=== PATIENT | male | born 1960 | race African-American/Black ===

== ENCOUNTER 2018-12-13 15:25 | Inpatient (IN) | payer BC ==
[2018-12-13] MEDS ORDERED: Mag-Al 1200 mg/1200 mg/30 ML UDCUP ONE (16:19)
[2018-12-13] MEDS ORDERED: Morphine 4 MG/ML VIAL ONE ×2 (16:19→18:41)
[2018-12-13] MEDS ORDERED: Lidocaine Viscous Sol 2% 15 ml UD Cup ONE (16:19)
[2018-12-13] MEDS ORDERED: Ondansetron PF 4 MG/2 ML Vial ONE (16:19)
[2018-12-13 16:31] LABS: #Basophils 0.1 thou/uL (0.0-0.2); #Eosinphils 0.1 thou/uL (0.0-0.7); #Lymphocytes 1.4 thou/uL (1.20-3.40); #Monocytes 0.7 thou/uL (0.11-0.59); %Basophils 0.6 % (0.0-1.0); %Eosinophils 1.3 % (0.0-10.0); %Lymphocytes 15.4 % (21.0-51.0); %Monocytes 7.4 % (0.0-10.0); %Neutrophils 75.2 % (42.0-75.0); Hemoglobin 12.7 g/dL (14.0-18.0); Mean Corpuscular HGB CONC 32.7 g/dL (32.0-36.0); Mean Corpuscular Hemoglobin 31.6 pg (27.0-31.0); Mean Corpuscular Volume 96.4 fL (78.0-98.0); Mean Platelet Volume 10.1 fL (7.4-10.4); Platelet Count 125 thou/uL (130-400); RBC Distribution Width 12.2 % (11.5-14.5); Red Blood Cell (RBC) Count 4.02 mill/uL (4.70-6.10); White Blood Cell (WBC) Count 9.3 thou/uL (4.8-10.8)
--- NOTE | 2018-12-13 16:44 | RAD ---
AP CHEST: History: Chest pain. Date: 12-13-18 Comparison: 02-06-15 FINDINGS: AP chest demonstrates cardiomegaly. Mild pulmonary vascular congestion seen. No evidence of effusions or pneumonia seen. IMPRESSION: Mild pulmonary vascular congestion and cardiomegaly. Otherwise, unremarkable AP view chest. POS: [facility]
[2018-12-13 16:49] LABS: ALT (SGPT) 11 U/L (8-55); AST (SGOT) 15 U/L (5-34); Albumin 3.6 g/dL (3.5-5.0); Alkaline Phosphatase 89 U/L (40-150); Anion Gap 14 mmol/L (10-20); BUN (Urea Nitrogen) 36 mg/dL (8.4-25.7); Bilirubin, Total 0.6 mg/dL (0.2-1.2); CK (CPK) 149 U/L (30-200); Calc. Creatinine Clearance 0 mL/min (70-130); Calcium 9.5 mg/dL (7.8-10.44); Carbon Dioxide 30 mmol/L (22-29); Chloride 93 mmol/L (98-107); Estimated GFR-MDRD 22; Globulin 3.8 g/dL (2.4-3.5); Lipase 332 U/L (8-78); Potassium 4.2 mmol/L (3.5-5.1); Protein, Total 7.4 g/dL (6.0-8.3); Sodium 133 mmol/L (136-145)
[2018-12-13 16:52] LABS: Glucose 562 mg/dL (70-105)
[2018-12-13 17:00] LABS: Bilirubin Negative (Negative); Blood, Urine Small (Negative); Clarity CLEAR (Clear); Glucose, Urine (Dipstick) >=1000 mg/dL (Negative); Leukocyte Negative (Negative); Nitrite Negative (Negative); Protein, Urine (Dipstick) 300 mg/dL (Neg-Trace); Specific Gravity, Urine 1.018 (1.002-1.036); Urobilinogen 0.2 mg/dL (0.2-1.0); pH, Urine 6.5 (5.0-9.0)
[2018-12-13 17:02] LABS: Bacteria/HPF None Seen HPF (None Seen); Hyaline Casts/LPF 0-3 HYALINE CAST LPF (0-3 Hyaline); RBC/HPF 0-3 HPF (0-3); Squamous Epithelial 0-3 HPF (0-3); WBC/HPF 0-3 HPF (0-3)
[2018-12-13 17:16] LABS: CKMB 1.8 ng/mL (0-6.6)
[2018-12-13] MEDS ORDERED: Benzonatate 100 MG CAP PO PRN (17:56)
[2018-12-13] MEDS ORDERED: Senokot S 8.6-50 MG TAB PO PRN ×2 (17:56)
[2018-12-13] MEDS ORDERED: Nitroglycerin 0.4 MG TAB (25 Tab Bottle) SL PRN (17:56)
[2018-12-13] MEDS ORDERED: Promethazine HCl 25 MG/ML VIAL IM PRN (17:56)
[2018-12-13] MEDS ORDERED: Bisacodyl 5 MG TAB PO PRN (17:56)
[2018-12-13] MEDS ORDERED: Acetaminophen 325 MG TAB PO PRN (17:56)
[2018-12-13] MEDS ORDERED: Diabetic Tussin 200 MG/10 ML UDCUP PO PRN (17:56)
[2018-12-13] MEDS ORDERED: Calcium Carbonate 500 MG ChewTAB PO PRN (17:56)
[2018-12-13] MEDS ORDERED: hydrALAZINE 20 MG/ML VIAL SLOW IVP PRN (17:56)
[2018-12-13] MEDS ORDERED: Dextrose 50% Abboject 50 ML SYRINGE SLOW IVP PRN (17:56)
[2018-12-13] MEDS ORDERED: Ondansetron PF 4 MG/2 ML Vial IVP PRN ×2 (17:56)
[2018-12-13] MEDS ORDERED: Dextrose 5% in Water 1,000 ML IV PRN (17:56)
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
[2018-12-13] MEDS ORDERED: Pantoprazole 40 MG VIAL ONE (18:41)
[2018-12-13] MEDS: Sodium Chloride 0.9% 1,000 ML IV SCH ×2 (18:58→21:51)
[2018-12-13] MEDS ORDERED: Polyethylene Glycol 3350 17 GM Packet PO SCH (19:00)
[2018-12-13 19:30] LABS: Magnesium 2.5 mg/dL (1.6-2.6); Phosphorus 3.3 mg/dL (2.3-4.7)
[2018-12-13 19:37] LABS: Troponin I 0.039 ng/mL (< 0.028)
--- NOTE | 2018-12-13 20:19 | HP ---
PRIMARY CARE PHYSICIAN: Dr. Iglesias. PRIMARY NEWS BROADCASTER: Dr. Triana. CHIEF COMPLAINT: Abdominal pain radiating to left shoulder and high blood sugars. HISTORY OF PRESENTING ILLNESS: Mr. Reyna is a very pleasant 58-year-old male with past medical history of chronic kidney disease as well as history of diabetes, dyslipidemia, chronic congestive heart failure likely diastolic, and hypertension as well as coronary artery disease, who presented to the emergency room with the above-mentioned complaint. History is mainly obtained by the patient himself and electronic medical records have been reviewed. Case has been discussed with admitting ER physician, Dr. Bravo. Mr. Reyna reports that he has been having this abdominal discomfort and pain for almost last 8 to 10 days. He describes it as an ongoing severe sharp pain. It increases in intensity after he eats. It is relieved somewhat when he lies flat with pain across to his abdomen. It radiates to his left shoulder. He has been also noticing that his appetite is down and he is severely constipated. He has been straining hard, but the last bowel movement he had was on when he noticed some blood in the stool due to straining. He also has been noticing that his blood sugars are running very high despite taking his insulin. Because of this, he felt that his pancreas is not doing well. He denies any other recent illnesses. He denies any nausea or vomiting. He denies any fever, chills, chest pain, shortness of breath. He denies excessive swelling or fluid retention. He states that he is compliant with his medications. The patient reports that he had similar episode of pancreatitis about 8 years ago. He does accept that he was drinking heavily at that time, but now he only drinks 2 to 3 times a week. He emphasizes that "I have quit beer and I only drink hard liquor these days to prevent pancreatitis." In the emergency room, his evaluation showed elevated lipase to 332. He also had hyperglycemia with a blood sugar of 562 and acute kidney insufficiency with creatinine of 3.54 with his baseline around 2.5. He had a CT scan done of his abdomen and pelvis, which was consistent with possible pancreatitis. Chest x-ray showed mild pulmonary vascular congestion with BNP of 418. He did not have any evidence to suggest diabetic ketoacidosis. He has received some IV fluids and pain medications in the ER and is now being admitted to medical floor for acute pancreatitis, most likely secondary to chronic alcohol use. Liver enzymes are unremarkable. There is no mention of gallbladder stones in the CT scan. No bowel obstruction in the CT scan. PAST MEDICAL HISTORY: 1. Coronary artery disease. 2. Chronic kidney disease, stage 3. 3. Diabetes mellitus type 2. 4. Dyslipidemia. 5. Gout. 6. Chronic congestive heart failure, likely diastolic. 7. Hypertension. 8. BPH. 9. Diabetic nephropathy. PAST SURGICAL HISTORY: Cardiac catheterization in 2007, which showed moderate decrease in EF as well as multivessel coronary artery disease. PSYCHIATRIC HISTORY: Negative. Reviewed with the patient. SOCIAL HISTORY: He smokes about 3/4 of a pack per day. Drinks alcohol at least 2 or 3 times a week. He does not drink beer, but drinks hard liquor instead. No illicit drug abuse. ALLERGIES: NO KNOWN MEDICATION ALLERGIES. CURRENT MEDICATIONS: As listed in the emergency room record and further needs to be corroborated. 1. Hydralazine. 2. Lisinopril. 3. Lantus subcu. 4. Glipizide. 5. Simvastatin. 6. Carvedilol with doses unknown. REVIEW OF SYSTEMS: 12-point review of system is done. It is negative except for those mentioned in the history and physical. CODE STATUS: Full code discussed with the patient. LABORATORY DATA: His CBC shows WBCs at 9.3 with 75% neutrophils, otherwise unremarkable. Platelet count is 125. Serum chemistry shows sodium 133, chloride 93, bicarb 30, BUN 36, creatinine 3.54, normal anion gap. Blood sugar 562. Mag, phos normal. BNP 418. Lipase 332. Troponin 0.047. Urinalysis showed glucosuria and proteinuria. Chest x-ray by my review shows bilateral small pleural effusion. Mild pulmonary vascular congestion without any evidence of infiltrates. CT scan of the abdomen and pelvis was concerning with mild pancreatitis, otherwise unremarkable. He does have an infrarenal abdominal aortic aneurysm which measures 4.2 x 3.9 cm. PHYSICAL EXAMINATION: VITAL SIGNS: Upon presentation, blood pressure 180/93, pulse of 80, respirations 18, saturating 96% on room air, temperature 98.4. GENERAL EXAMINATION: No acute distress. He does appear somewhat uncomfortable, but is awake, alert, and oriented x3. HEENT EXAMINATION: Mucous membrane is slightly dry. No oropharyngeal exudate or erythema. Head is normocephalic, atraumatic. Pupils are equal and reactive to light and accommodation. Extraocular movement intact. NECK: Supple without any lymphadenopathy, JVD, or bruit. CHEST: Clear to auscultation without any wheezing, rales or rhonchi. HEART: Rate and rhythm is regular without any murmurs, rubs, or gallops. ABDOMEN: Somewhat distended, obese, and tender to palpation diffusely without any guarding, rigidity, or rebound. Bowel sounds are heard easily. EXTREMITIES: Free of any cyanosis, clubbing, or edema. NEUROLOGICAL EXAMINATION: Nonfocal. SKIN: Free of any rashes or bruises. PSYCHIATRIC: Normal affect. IMPRESSION AND PLAN: 1. Acute pancreatitis. Most likely alcoholic pancreatitis. He has no evidence of gallstones. We will check a lipid panel in the morning. We will give him gentle IV fluids with n.p.o. status. Pain medication, nausea medication, supportive care will be continued. We will monitor electrolytes closely. He is at high risk for fluid overload, so IV fluids will be used judiciously with close monitoring of his intake and output status. He is otherwise hemodynamically stable. 2. Hypertensive urgency. We will restart his home medications when the dosages are confirmed. Hold the SINGH inhibitor in light of acute renal insufficiency for now. 3. Acute on chronic kidney disease. This is likely secondary to ongoing acute pancreatitis and hyperglycemia and dehydration. Gentle IV fluids have been started. We will hold the SINGH inhibitor. 4. Diabetes mellitus. The patient is n.p.o., so oral hypoglycemics will be held. He will be treated with insulin sliding scale for now with frequent Accu-Cheks. 5. Hyperglycemia, likely secondary to acute pancreatitis. Accu-Cheks have been ordered as well as insulin sliding scale. 6. Hyponatremia secondary to hyperglycemia, just pseudohyponatremia. 7. Indeterminate troponin. Suspect demand ischemia from acute pancreatitis. His repeat troponin is already returning down to 0.039. We will obtain a transthoracic echocardiogram given his history of congestive heart failure and elevated BNP. His last echo was done in 2014, which showed ejection fraction preserved at 65% to 70% with grade 1 diastolic dysfunction and left ventricular hypertrophy. 8. History of coronary artery disease. Restart home medications once confirmed. 9. Code status. Full code discussed with the patient. 10. Deep venous thrombosis and gastrointestinal prophylaxis. DISPOSITION: Mr. Reyna is currently being admitted to medical floor for acute alcoholic pancreatitis, which is mild to moderate at best. Estimated length of stay at this time is at least 2 to 3 midnights. Further management will depend upon his clinical course. Job ID: [id number]
[2018-12-13] MEDS ORDERED: Famotidine/PF 20 mg/2ml Vial SLOW IVP SCH (21:00)
[2018-12-13 21:28] VITALS: BMI 28.4
[2018-12-13] MEDS: Heparin 5,000 UNITS/ML VIAL SC SCH (21:49)
[2018-12-13] MEDS: Metoprolol Tartrate 25 MG TAB PO SCH (21:49)
[2018-12-13] MEDS: Senokot S 8.6-50 MG TAB PO SCH (21:49)
[2018-12-13] MEDS: Meperidine HCl/PF 25 MG/ML VIAL SLOW IVP PRN (21:50)
[2018-12-14] MEDS: Pantoprazole 40 MG VIAL IVP SCH ×2 (00:01→21:11)
[2018-12-14] MEDS: HumaLOG 300 UNITS/3 ML VIAL SC PRN (00:07)
[2018-12-14] MEDS: Meperidine HCl/PF 25 MG/ML VIAL SLOW IVP PRN ×3 (05:00→21:59)
[2018-12-14 05:27] LABS: #Eosinphils 0.2 thou/uL (0.0-0.7); #Lymphocytes 1.6 thou/uL (1.20-3.40); #Monocytes 0.7 thou/uL (0.11-0.59); #Neutrophils 5.5 thou/uL (1.40-6.50); %Basophils 0.4 % (0.0-1.0); %Eosinophils 2.1 % (0.0-10.0); %Lymphocytes 19.7 % (21.0-51.0); %Monocytes 8.5 % (0.0-10.0); %Neutrophils 69.3 % (42.0-75.0); Hemoglobin 11.4 g/dL (14.0-18.0); Mean Corpuscular HGB CONC 33.4 g/dL (32.0-36.0); Mean Corpuscular Hemoglobin 31.9 pg (27.0-31.0); Mean Corpuscular Volume 95.6 fL (78.0-98.0); Mean Platelet Volume 9.7 fL (7.4-10.4); Platelet Count 106 thou/uL (130-400); Red Blood Cell (RBC) Count 3.58 mill/uL (4.70-6.10); White Blood Cell (WBC) Count 7.9 thou/uL (4.8-10.8)
[2018-12-14 05:43] LABS: ALT (SGPT) 7 U/L (8-55); AST (SGOT) 12 U/L (5-34); Albumin 3.1 g/dL (3.5-5.0); Alkaline Phosphatase 78 U/L (40-150); Anion Gap 12 mmol/L (10-20); BUN (Urea Nitrogen) 35 mg/dL (8.4-25.7); Bilirubin, Total 0.5 mg/dL (0.2-1.2); Calc. Creatinine Clearance 38 mL/min (70-130); Calcium 9.2 mg/dL (7.8-10.44); Carbon Dioxide 29 mmol/L (22-29); Cardiac Risk 3.4 (Less than 4.5); Chloride 99 mmol/L (98-107); Cholesterol 150 mg/dl (< 200 Desired); Estimated GFR-MDRD 24; Globulin 3.3 g/dL (2.4-3.5); Glucose 364 mg/dL (70-105); HDL Cholesterol 44 mg/dL (>60 Neg Risk); LDL Cholesterol, Calculated 85 mg/dL; Lipase 266 U/L (8-78); Magnesium 2.6 mg/dL (1.6-2.6); Phosphorus 3.5 mg/dL (2.3-4.7); Potassium 4.2 mmol/L (3.5-5.1); Protein, Total 6.4 g/dL (6.0-8.3); Sodium 136 mmol/L (136-145); Triglycerides 105 mg/dL (Less than 150)
[2018-12-14] MEDS: Senokot S 8.6-50 MG TAB PO SCH ×2 (08:47→21:11)
[2018-12-14] MEDS: Heparin 5,000 UNITS/ML VIAL SC SCH ×2 (08:47→21:12)
[2018-12-14] MEDS: Metoprolol Tartrate 25 MG TAB PO SCH (08:47)
[2018-12-14] MEDS: Polyethylene Glycol 3350 17 GM Packet PO SCH ×2 (08:48→15:15)
[2018-12-14] MEDS: Carvedilol 25 MG TAB PO SCH ×2 (09:49→21:11)
[2018-12-14] MEDS: hydrALAZINE 25 MG TAB PO SCH ×3 (09:51→21:11)
[2018-12-14] MEDS: Sodium Chloride 0.9% 1,000 ML IV SCH ×2 (09:53→21:10)
[2018-12-14] MEDS: cloNIDine 0.1 MG TAB PO PRN ×2 (11:41→19:50)
[2018-12-14] MEDS: HYDROcodone/Acetaminophen 5/325 mg Tablet PO PRN (14:34)
--- NOTE | 2018-12-14 15:08 | PDOC.PN ---
- Subjective Encounter Start Date: 12/14/18 Encounter Start Time: 15:06 Subjective: had one episode of pain this am -: no nausea/vomiting,but still feels weak - Objective MAR Reviewed: Yes Vital Signs & Weight: Vital Signs (12 hours) Temp Pulse Resp BP BP Pulse Ox 12/14/18 14:36 74 192/88 H 12/14/18 12:30 158/78 H 12/14/18 11:41 190/90 H 12/14/18 11:37 98.8 F 71 17 190/90 H 98 12/14/18 09:51 69 162/74 H 12/14/18 08:30 97.9 F 69 19 169/91 H 96 12/14/18 04:11 65 184/102 H 12/14/18 04:00 98.0 F 66 18 95 Weight Weight 240 lb I&O: 12/13/18 12/14/18 12/15/18 06:59 06:59 06:59 Intake Total 500 Output Total 650 Balance -150 Result Diagrams: 12/14/18 04:37 12/14/18 04:37 Additional Labs: Accuchecks 12/14/18 12/14/18 12/13/18 10:55 05:39 23:59 POC Glucose 286 H 338 H 492 H Laboratory Tests 02/06/15 12/13/18 12/13/18 11:26 15:59 15:59 Creatinine 3.54 H Troponin I B-Natriuretic Peptide 1004.6 H 418.7 H Lipase 332 H 12/13/18 12/13/18 12/13/18 15:59 19:00 21:55 Creatinine Troponin I 0.047 H 0.039 H 0.040 H B-Natriuretic Peptide Lipase 12/14/18 12/14/18 04:37 04:37 Creatinine 3.20 H Troponin I B-Natriuretic Peptide 390.9 H Lipase 266 H Phys Exam - Physical Examination Constitutional: NAD uncomfortable HEENT: PERRLA, moist MMs, sclera anicteric, oral pharynx no lesions Neck: no nodes, no JVD, supple, full ROM Respiratory: no wheezing, no rales, no rhonchi, clear to auscultation bilateral Cardiovascular: RRR, no significant murmur Gastrointestinal: soft, positive bowel sounds distenede and TTP.no rigidity Musculoskeletal: no edema, pulses present Neurological: non-focal, normal sensation, moves all 4 limbs Psychiatric: normal affect, A&O x 3 Dx/Plan (1) Acute alcoholic pancreatitis Code(s): K85.20 - ALCOHOL INDUCED ACUTE PANCREATITIS WITHOUT NECROSIS OR INFCT Status: Acute (2) Acute kidney injury superimposed on CKD Code(s): N17.9 - ACUTE KIDNEY FAILURE, UNSPECIFIED; N18.9 - CHRONIC KIDNEY DISEASE, UNSPECIFIED Status: Acute (3) Chronic diastolic heart failure secondary to coronary artery disease Code(s): I50.32 - CHRONIC DIASTOLIC (CONGESTIVE) HEART FAILURE; I25.10 - ATHSCL HEART DISEASE OF [place] CORONARY ARTERY W/O ANG PCTRS Status: Chronic (4) CAD (coronary artery disease) Code(s): I25.10 - ATHSCL HEART DISEASE OF [place] CORONARY ARTERY W/O ANG PCTRS Status: Chronic (5) DM2 (diabetes mellitus, type 2) Status: Chronic - Plan out of bed/ambulate, DVT proph w/SCDs lipase still high.increase IVf w close monitoring for fluid OL.currently eu -: renal Fx better. recheck -: conuslt nephro for Uncontrolled HTN. add procardia XL.ARB on hold d/t LUIS -: lasix on hold d/t LUIS. ECHO pending. -: Aggressive bowel regimen.daily miralax & stool softners * .recheck BMP & Lipase in afternoon * ambulate Review of Systems - Review of Systems Constitutional: negative: fever, chills, sweats, weakness, malaise, other ENT: negative: Ear Pain, Ear Discharge, Nose Pain, Nose Discharge, Nose Congestion, Mouth Pain, Mouth Swelling, Throat Pain, Throat Swelling, Other Respiratory: negative: Cough, Dry, Shortness of Breath, Hemoptysis, SOB with Excertion, Pleuritic Pain, Sputum, Wheezing Cardiovascular: negative: chest pain, palpitations, orthopnea, paroxysmal nocturnal dyspnea, edema, light headedness, other Gastrointestinal: Abdominal Pain. negative: Nausea, Vomiting, Diarrhea, Constipation, Melena, Hematochezia, Other Genitourinary: negative: Dysuria, Frequency, Incontinence, Hematuria, Retention , Other Musculoskeletal: negative: Neck Pain, Shoulder Pain, Arm Pain, Back Pain, Hand Pain, Leg Pain, Foot Pain, Other Neurological: negative: Weakness, Numbness, Incoordination, Change in Speech, Confusion, Seizures, Other - Medications/Allergies Allergies/Adverse Reactions: Allergies Allergy/AdvReac Type Severity Reaction Status Date / Time tramadol Allergy Verified 12/13/18 23:55 Medications: Current Medications Acetaminophen (Tylenol) 650 mg PO Q4H PRN PRN Reason: Headache/Fever/Mild Pain (1-3) Hydrocodone Bitart/Acetaminophen ([place] 5/325) 1 tab PO Q4H PRN PRN Reason: Moderate Pain (4-6) Last Admin: 12/14/18 14:34 Dose: 1 tab Benzonatate (Tessalon) 100 mg PO Q6H PRN PRN Reason: Cough Bisacodyl (Dulcolax) 10 mg PO DAILYPRN PRN PRN Reason: Constipation Calcium Carbonate (Tums) 1,000 mg PO Q4H PRN PRN Reason: Heartburn or Indigestion Carvedilol (Coreg) 25 mg PO BID [facility] Last Admin: 12/14/18 09:49 Dose: Not Given Clonidine (Catapres) 0.1 mg PO Q4H PRN PRN Reason: SBP > 160____ Last Admin: 12/14/18 11:41 Dose: 0.1 mg Dextrose/Water (Dextrose 50%) 25 gm SLOW IVP PRN PRN PRN Reason: Hypoglycemia Glucagon (Glucagon) 1 mg IM PRN PRN PRN Reason: Hypoglycemia Guaifenesin (Robitussin Sf) 200 mg PO Q4H PRN PRN Reason: Cough Heparin Sodium (Porcine) (Heparin) 5,000 units SC BID [facility] Last Admin: 12/14/18 08:47 Dose: 5,000 units Hydralazine HCl (Apresoline) 10 mg SLOW IVP Q4H PRN PRN Reason: SBP > 180 and HR < 70 Last Admin: 12/14/18 04:11 Dose: 10 mg Hydralazine HCl (Apresoline) 25 mg PO TID [facility] Last Admin: 12/14/18 14:36 Dose: 25 mg Dextrose/Water (D5w) 1,000 mls @ 0 mls/hr IV .Q0M PRN PRN Reason: Hypoglycemia Sodium Chloride (Normal Saline 0.9%) 1,000 mls @ 100 mls/hr IV .Q10H [facility] Last Admin: 12/14/18 09:53 Dose: 1,000 mls Insulin Human Lispro (Humalog) 0 units SC .MODERATE SLIDING SC PRN PRN Reason: Moderate Correctional Scale Insulin Human Lispro (Humalog) 0 units SC .BEDTIME SLIDING SC PRN PRN Reason: Bedtime Correctional Scale Last Admin: 12/14/18 00:07 Dose: 5 unit Meperidine HCl (Demerol) 25 mg SLOW IVP Q3H PRN PRN Reason: Severe Pain (7-10) Last Admin: 12/14/18 05:00 Dose: 25 mg Nifedipine (Procardia Xl) 60 mg PO DAILY [facility] Nifedipine (Procardia Xl) 60 mg PO 1515 [facility] Stop: 12/14/18 17:15 Nitroglycerin (Nitrostat) 0.4 mg SL Q5MIN PRN PRN Reason: Chest Pain Ondansetron HCl (Zofran) 4 mg IVP Q6H PRN PRN Reason: Nausea/Vomiting Pantoprazole Sodium (Protonix) 40 mg IVP 2100 [facility] Last Admin: 12/14/18 00:01 Dose: Not Given Polyethylene Glycol (Miralax) 17 gm PO DAILY [facility] Last Admin: 12/14/18 08:48 Dose: Not Given Promethazine HCl (Phenergan) 12.5 mg IM Q4H PRN PRN Reason: Nausea/Vomiting Senna/Docusate Sodium (Senokot S) 2 tab PO BID PRN PRN Reason: Constipation Senna/Docusate Sodium (Senokot S) 1 tab PO BID [facility] Last Admin: 12/14/18 08:47 Dose: 1 tab
[2018-12-14] MEDS ORDERED: NIFEdipine XL 30 MG TAB PO SCH (15:15)
[2018-12-15] MEDS: Meperidine HCl/PF 25 MG/ML VIAL SLOW IVP PRN ×4 (01:09→18:55)
[2018-12-15] MEDS: Polyethylene Glycol 3350 17 GM Packet PO SCH (08:07)
[2018-12-15] MEDS: Carvedilol 25 MG TAB PO SCH ×2 (08:07→20:45)
[2018-12-15] MEDS: Sodium Chloride 0.9% 1,000 ML IV SCH ×3 (08:07→16:14)
[2018-12-15] MEDS: hydrALAZINE 25 MG TAB PO SCH ×3 (08:08→20:46)
[2018-12-15] MEDS: NIFEdipine XL 60 MG TAB PO SCH (08:08)
[2018-12-15] MEDS: Senokot S 8.6-50 MG TAB PO SCH ×2 (08:08→20:46)
[2018-12-15] MEDS: Heparin 5,000 UNITS/ML VIAL SC SCH ×2 (08:08→20:46)
--- NOTE | 2018-12-15 08:47 | CON ---
DATE OF CONSULTATION: 12/14/2018 CONSULTING PHYSICIAN: Cathi Triana MD REASON FOR CONSULTATION: Chronic kidney disease, stage 4. REASON FOR ADMISSION: Abdominal pain and pancreatitis. HISTORY OF PRESENT ILLNESS: This is a 58-year-old male with a history of chronic kidney disease and following with Dr. Triana at [facility], coronary artery disease, type 2 diabetes, hyperlipidemia, gout, and hypertension, who came to the hospital with the above complaints and apparently found to have elevated creatinine and high blood pressure. Nephrology was consulted. No fever or chills. The patient is still having abdominal pain here and is complaining about that. PAST MEDICAL HISTORY: Positive for coronary artery disease, CKD, type 2 diabetes, hyperlipidemia, gout, CHF, hypertension, BPH, and diabetic nephropathy. PAST SURGICAL HISTORY: Cardiac catheterization. HOME MEDICATIONS: 1. Hydralazine. 2. Lisinopril. 3. Lantus. 4. Glipizide. 5. Simvastatin. 6. Carvedilol. ALLERGIES: NO KNOWN DRUG ALLERGIES. SOCIAL HISTORY: Smokes currently and drinks alcohol. FAMILY HISTORY: No history of any kidney disease. REVIEW OF SYSTEMS: CONSTITUTIONAL: Negative for weight loss or gain, ability to conduct usual activities. SKIN: Negative for rash, itching. EYES: Negative for double vision, pain. ENT/MOUTH: Negative for nose bleeding, neck stiffness, pain, tenderness. CARDIOVASCULAR: Negative for palpitations, dyspnea on exertion, orthopnea. RESPIRATORY: Negative for shortness of breath, wheezing, cough, hemoptysis, fever or night sweats. GASTROINTESTINAL: Negative for poor appetite, abdominal pain, heartburn, nausea, vomiting, constipation, or diarrhea. GENITOURINARY: Negative for urgency, frequency, dysuria, nocturia. MUSCULOSKELETAL: Negative for pain, swelling. NEUROLOGIC/PSYCHIATRIC: Negative for anxiety, depression. ALLERGY/IMMUNOLOGIC: Negative for skin rash, bleeding tendency. PHYSICAL EXAMINATION: GENERAL: This is a well-built male, in no apparent distress. VITAL SIGNS: Temperature . HEENT: Atraumatic and normocephalic. Oral mucosa is moist. NECK: Supple. CARDIOVASCULAR: S1 and S2 heard. Rate and rhythm regular. RESPIRATORY: Clear to auscultation. GASTROINTESTINAL: Abdomen is soft. MUSCULOSKELETAL: No tenderness. No edema. DERMATOLOGIC: No skin rash. NEUROLOGIC: Alert and awake. PSYCHIATRIC: Normal mood and affect. LABORATORY DATA: Hemoglobin is 11.4, potassium 4.2, BUN is 35, and creatinine is 3.2. ASSESSMENT AND PLAN: 1. Chronic kidney disease, stage 4, stable. 2. Hypertension. Agree with adding Procardia and monitor.. 3. Diabetes. 4. Anemia, mild. 5. Edema, controlled. 6. We will titrate blood pressure medicines and monitor blood pressure and renal function seems to be stable close to his baseline. We will follow. Job ID: [id number]
[2018-12-15 09:46] LABS: Anion Gap 14 mmol/L (10-20); BUN (Urea Nitrogen) 35 mg/dL (8.4-25.7); Calc. Creatinine Clearance 40 mL/min (70-130); Calcium 9.1 mg/dL (7.8-10.44); Carbon Dioxide 26 mmol/L (22-29); Chloride 103 mmol/L (98-107); Estimated GFR-MDRD 25; Glucose 279 mg/dL (70-105); Lipase 117 U/L (8-78); Potassium 4.3 mmol/L (3.5-5.1); Sodium 139 mmol/L (136-145)
[2018-12-15] MEDS ORDERED: Bisacodyl 10 MG SUPP PR PRN (10:42)
[2018-12-15] MEDS ORDERED: Bisacodyl 10 MG SUPP PR SCH (10:45)
[2018-12-15] MEDS: HumaLOG 300 UNITS/3 ML VIAL SC PRN ×2 (12:01→17:36)
--- NOTE | 2018-12-15 12:32 | PRG ---
DATE OF SERVICE: SUBJECTIVE: Patient was seen and examined at bedside and overnight events noted. Patient denies any shortness of breath or chest pain or palpitation. No history of nausea or vomiting or diarrhea or fever or chills or cramps. OBJECTIVE: GENERAL: This is a well-built male, in no apparent distress. VITAL SIGNS: Temperature 98.1. Heart rate 69. Respiratory rate 18. Blood pressure 136/78. HEENT: Atraumatic, normocephalic. Oral mucosa is moist NECK: Supple. CARDIOVASCULAR: S1, S2 heard. Rate and rhythm regular. RESPIRATORY: Clear to auscultation. GASTROINTESTINAL: Abdomen is soft. MUSCULOSKELETAL: No tenderness. No edema. DERMATOLOGIC: No skin rash. NEUROLOGIC: Alert and awake and oriented X3. No focal neurologic deficits. Moving all the extremities. PSYCHIATRIC: Mood and affect normal. LABORATORY DATA: Potassium is 4.3, BUN is 35, creatinine is 3.0. ASSESSMENT AND PLAN: 1. Acute kidney injury on chronic kidney disease, stage 4. Renal function seems to be stable . 2. Edema, controlled. 3. Hypertension. 4. Anemia. Agree with titrating Procardia and we will follow. Job ID: [id number]
--- NOTE | 2018-12-15 15:44 | PDOC.PN ---
- Subjective Encounter Start Date: 12/15/18 Encounter Start Time: 15:43 Subjective: feels a little better. still no BM but abd pain much better -: ambulating in hallways - Objective MAR Reviewed: Yes Vital Signs & Weight: Vital Signs (12 hours) Temp Pulse Resp BP Pulse Ox 12/15/18 11:00 97.5 F L 75 18 158/83 H 98 12/15/18 07:15 98.1 F 69 18 151/81 H 98 12/15/18 04:00 98.6 F 78 20 136/78 95 Weight Weight 240 lb I&O: 12/14/18 12/15/18 12/16/18 06:59 06:59 06:59 Intake Total 500 1140 Output Total 650 1000 Balance -150 140 Result Diagrams: 12/14/18 04:37 12/15/18 09:06 Additional Labs: Accuchecks 12/15/18 12/14/18 12/14/18 05:59 20:31 16:43 POC Glucose 284 H 240 H 255 H Laboratory Tests 12/13/18 12/13/18 12/14/18 15:59 15:59 04:37 Creatinine 3.54 H 3.20 H B-Natriuretic Peptide 418.7 H Lipase 332 H 266 H 12/14/18 12/15/18 12/15/18 04:37 09:06 09:06 Creatinine 3.08 H B-Natriuretic Peptide 390.9 H 269.2 H Lipase 117 H Phys Exam - Physical Examination Constitutional: NAD HEENT: PERRLA, moist MMs, sclera anicteric, oral pharynx no lesions Neck: no nodes, no JVD, supple, full ROM Respiratory: no wheezing, no rales, no rhonchi, clear to auscultation bilateral Cardiovascular: RRR, no significant murmur, no rub Gastrointestinal: soft, non-tender, no distention, positive bowel sounds Musculoskeletal: no edema, pulses present Neurological: non-focal, normal sensation, moves all 4 limbs Psychiatric: normal affect, A&O x 3 Skin: no rash Dx/Plan (1) Acute alcoholic pancreatitis Code(s): K85.20 - ALCOHOL INDUCED ACUTE PANCREATITIS WITHOUT NECROSIS OR INFCT Status: Acute Comment: improving (2) Acute kidney injury superimposed on CKD Code(s): N17.9 - ACUTE KIDNEY FAILURE, UNSPECIFIED; N18.9 - CHRONIC KIDNEY DISEASE, UNSPECIFIED Status: Acute Comment: improving (3) Chronic diastolic heart failure secondary to coronary artery disease Code(s): I50.32 - CHRONIC DIASTOLIC (CONGESTIVE) HEART FAILURE; I25.10 - ATHSCL HEART DISEASE OF [place] CORONARY ARTERY W/O ANG PCTRS Status: Chronic (4) CAD (coronary artery disease) Code(s): I25.10 - ATHSCL HEART DISEASE OF [place] CORONARY ARTERY W/O ANG PCTRS Status: Chronic (5) DM2 (diabetes mellitus, type 2) Status: Chronic - Plan out of bed/ambulate, DVT proph w/SCDs lipase better,clinically better. reduce IVF.start liquid diet -: BP better controlled. started on procardia.lasix on hold d/t gerald -: monitor for Fluid OL.euvolemic so far -: add aggressive bowl regimen. -: am labs. apprecite nephrology input * . Review of Systems - Review of Systems Constitutional: malaise. negative: fever, chills, sweats, weakness, other Respiratory: negative: Cough, Dry, Shortness of Breath, Hemoptysis, SOB with Excertion, Pleuritic Pain, Sputum, Wheezing Cardiovascular: negative: chest pain, palpitations, orthopnea, paroxysmal nocturnal dyspnea, edema, light headedness, other Gastrointestinal: negative: Nausea, Vomiting, Abdominal Pain, Diarrhea, Constipation, Melena, Hematochezia, Other Genitourinary: negative: Dysuria, Frequency, Incontinence, Hematuria, Retention , Other Neurological: negative: Weakness, Numbness, Incoordination, Change in Speech, Confusion, Seizures, Other - Medications/Allergies Allergies/Adverse Reactions: Allergies Allergy/AdvReac Type Severity Reaction Status Date / Time tramadol Allergy Verified 12/13/18 23:55 Medications: Current Medications Acetaminophen (Tylenol) 650 mg PO Q4H PRN PRN Reason: Headache/Fever/Mild Pain (1-3) Hydrocodone Bitart/Acetaminophen ([place] 5/325) 1 tab PO Q4H PRN PRN Reason: Moderate Pain (4-6) Last Admin: 12/14/18 14:34 Dose: 1 tab Benzonatate (Tessalon) 100 mg PO Q6H PRN PRN Reason: Cough Bisacodyl (Dulcolax) 10 mg PO DAILYPRN PRN PRN Reason: Constipation Bisacodyl (Dulcolax) 10 mg [place] Q8H PRN PRN Reason: Constipation Calcium Carbonate (Tums) 1,000 mg PO Q4H PRN PRN Reason: Heartburn or Indigestion Carvedilol (Coreg) 25 mg PO BID [facility] Last Admin: 12/15/18 08:07 Dose: 25 mg Clonidine (Catapres) 0.1 mg PO Q4H PRN PRN Reason: SBP > 160____ Last Admin: 12/14/18 19:50 Dose: 0.1 mg Dextrose/Water (Dextrose 50%) 25 gm SLOW IVP PRN PRN PRN Reason: Hypoglycemia Glucagon (Glucagon) 1 mg IM PRN PRN PRN Reason: Hypoglycemia Guaifenesin (Robitussin Sf) 200 mg PO Q4H PRN PRN Reason: Cough Heparin Sodium (Porcine) (Heparin) 5,000 units SC BID [facility] Last Admin: 12/15/18 08:08 Dose: 5,000 units Hydralazine HCl (Apresoline) 10 mg SLOW IVP Q4H PRN PRN Reason: SBP > 180 and HR < 70 Last Admin: 12/14/18 04:11 Dose: 10 mg Hydralazine HCl (Apresoline) 25 mg PO TID [facility] Last Admin: 12/15/18 15:15 Dose: 25 mg Dextrose/Water (D5w) 1,000 mls @ 0 mls/hr IV .Q0M PRN PRN Reason: Hypoglycemia Sodium Chloride (Normal Saline 0.9%) 1,000 mls @ 100 mls/hr IV .Q10H [facility] Last Admin: 12/15/18 08:07 Dose: 1,000 mls Insulin Human Lispro (Humalog) 0 units SC .MODERATE SLIDING SC PRN PRN Reason: Moderate Correctional Scale Last Admin: 12/15/18 12:01 Dose: 6 unit Insulin Human Lispro (Humalog) 0 units SC .BEDTIME SLIDING SC PRN PRN Reason: Bedtime Correctional Scale Last Admin: 12/14/18 00:07 Dose: 5 unit Meperidine HCl (Demerol) 25 mg SLOW IVP Q3H PRN PRN Reason: Severe Pain (7-10) Last Admin: 12/15/18 12:38 Dose: 25 mg Nifedipine (Procardia Xl) 60 mg PO DAILY [facility] Last Admin: 12/15/18 08:08 Dose: 60 mg Nitroglycerin (Nitrostat) 0.4 mg SL Q5MIN PRN PRN Reason: Chest Pain Ondansetron HCl (Zofran) 4 mg IVP Q6H PRN PRN Reason: Nausea/Vomiting Pantoprazole Sodium (Protonix) 40 mg IVP 2100 [facility] Last Admin: 12/14/18 21:11 Dose: 40 mg Polyethylene Glycol (Miralax) 17 gm PO DAILY [facility] Last Admin: 12/15/18 08:07 Dose: Not Given Promethazine HCl (Phenergan) 12.5 mg IM Q4H PRN PRN Reason: Nausea/Vomiting Senna/Docusate Sodium (Senokot S) 2 tab PO BID PRN PRN Reason: Constipation Senna/Docusate Sodium (Senokot S) 1 tab PO BID [facility] Last Admin: 12/15/18 08:08 Dose: 1 tab Sodium Chloride (Flush - Normal Saline) 10 ml IVF Q12HR [facility] Sodium Chloride (Flush - Normal Saline) 10 ml IVF PRN PRN PRN Reason: Saline Flush
[2018-12-15] MEDS: HYDROcodone/Acetaminophen 5/325 mg Tablet PO PRN (20:54)
[2018-12-15] MEDS: Pantoprazole 40 MG VIAL IVP SCH (22:17)
[2018-12-16] MEDS: Meperidine HCl/PF 25 MG/ML VIAL SLOW IVP PRN ×3 (01:40→13:36)
[2018-12-16 05:51] LABS: Anion Gap 15 mmol/L (10-20); BUN (Urea Nitrogen) 32 mg/dL (8.4-25.7); Calc. Creatinine Clearance 43 mL/min (70-130); Carbon Dioxide 22 mmol/L (22-29); Chloride 102 mmol/L (98-107); Estimated GFR-MDRD 28; Glucose 319 mg/dL (70-105); Lipase 124 U/L (8-78); Potassium 4.2 mmol/L (3.5-5.1); Sodium 135 mmol/L (136-145)
[2018-12-16] MEDS: Senokot S 8.6-50 MG TAB PO SCH ×2 (08:36→19:43)
[2018-12-16] MEDS: hydrALAZINE 25 MG TAB PO SCH ×3 (08:36→19:44)
[2018-12-16] MEDS: Carvedilol 25 MG TAB PO SCH ×2 (08:36→19:44)
[2018-12-16] MEDS: NIFEdipine XL 60 MG TAB PO SCH ×2 (08:36→19:44)
[2018-12-16] MEDS: Polyethylene Glycol 3350 17 GM Packet PO SCH (08:36)
[2018-12-16] MEDS: Heparin 5,000 UNITS/ML VIAL SC SCH ×2 (08:37→19:45)
[2018-12-16] MEDS: Sodium Chloride 0.9% 1,000 ML IV SCH (08:45)
[2018-12-16] MEDS ORDERED: Lisinopril 10 MG TAB PO SCH (09:45)
[2018-12-16] MEDS: Calcium Carbonate + Vit D 1 TAB PO SCH ×2 (10:04→19:44)
[2018-12-16] MEDS: HumaLOG 300 UNITS/3 ML VIAL SC PRN ×3 (11:34→22:20)
--- NOTE | 2018-12-16 15:32 | PDOC.PN ---
- Subjective Encounter Start Date: 12/16/18 Encounter Start Time: 15:31 Subjective: discussed w RN-no miralax or suppository given yesterday -: no abd pain and feels better - Objective MAR Reviewed: Yes Vital Signs & Weight: Vital Signs (12 hours) Temp Pulse Resp BP BP Pulse Ox 12/16/18 11:30 97.9 F 74 16 169/88 H 100 12/16/18 07:10 98.2 F 78 17 184/95 H 97 12/16/18 03:54 156/90 H 12/16/18 03:45 97.6 F 72 18 182/93 H 95 Weight Weight 237 lb 3.2 oz I&O: 12/15/18 12/16/18 12/17/18 06:59 06:59 06:59 Intake Total 1140 2120 Output Total 1000 480 Balance 140 1640 Result Diagrams: 12/14/18 04:37 12/16/18 04:46 Additional Labs: Accuchecks 12/16/18 12/16/18 12/15/18 11:18 05:46 20:22 POC Glucose 381 H 283 H 261 H 12/15/18 17:01 POC Glucose 274 H Laboratory Tests 12/13/18 12/14/18 12/15/18 15:59 04:37 09:06 Creatinine 3.54 H 3.20 H 3.08 H Lipase 332 H 266 H 117 H 12/16/18 04:46 Creatinine 2.83 H Lipase 124 H Phys Exam - Physical Examination Constitutional: NAD HEENT: PERRLA, moist MMs, sclera anicteric, oral pharynx no lesions Neck: no nodes, no JVD, supple, full ROM Respiratory: no wheezing, no rales, no rhonchi, clear to auscultation bilateral Cardiovascular: RRR, no significant murmur, no rub Gastrointestinal: soft, non-tender, positive bowel sounds distended Musculoskeletal: no edema, pulses present Neurological: non-focal, normal sensation, moves all 4 limbs Dx/Plan (1) Acute alcoholic pancreatitis Code(s): K85.20 - ALCOHOL INDUCED ACUTE PANCREATITIS WITHOUT NECROSIS OR INFCT Status: Acute Comment: improving (2) Acute kidney injury superimposed on CKD Code(s): N17.9 - ACUTE KIDNEY FAILURE, UNSPECIFIED; N18.9 - CHRONIC KIDNEY DISEASE, UNSPECIFIED Status: Acute Comment: improving (3) Chronic diastolic heart failure secondary to coronary artery disease Code(s): I50.32 - CHRONIC DIASTOLIC (CONGESTIVE) HEART FAILURE; I25.10 - ATHSCL HEART DISEASE OF [place] CORONARY ARTERY W/O ANG PCTRS Status: Chronic (4) CAD (coronary artery disease) Code(s): I25.10 - ATHSCL HEART DISEASE OF [place] CORONARY ARTERY W/O ANG PCTRS Status: Chronic (5) DM2 (diabetes mellitus, type 2) Status: Chronic - Plan PT/OT, out of bed/ambulate, DVT proph w/SCDs start regular diet .lipase almost NL -: Pt did not get any Miralx yesterday despite verbal & written orders -: He was not NPO yesterday.tolerating full liquid since yesterday -: will move to medical. needs to have BM before DC -: restart lasix at low dose. Dc IVF.renal Fx better * . Review of Systems - Review of Systems Constitutional: negative: fever, chills, sweats, weakness, malaise, other ENT: negative: Ear Pain, Ear Discharge, Nose Pain, Nose Discharge, Nose Congestion, Mouth Pain, Mouth Swelling, Throat Pain, Throat Swelling, Other Respiratory: negative: Cough, Dry, Shortness of Breath, Hemoptysis, SOB with Excertion, Pleuritic Pain, Sputum, Wheezing Cardiovascular: negative: chest pain, palpitations, orthopnea, paroxysmal nocturnal dyspnea, edema, light headedness, other Gastrointestinal: negative: Nausea, Vomiting, Abdominal Pain, Diarrhea, Constipation, Melena, Hematochezia, Other Genitourinary: negative: Dysuria, Frequency, Incontinence, Hematuria, Retention , Other Neurological: negative: Weakness, Numbness, Incoordination, Change in Speech, Confusion, Seizures, Other - Medications/Allergies Allergies/Adverse Reactions: Allergies Allergy/AdvReac Type Severity Reaction Status Date / Time tramadol Allergy Verified 12/13/18 23:55 Medications: Current Medications Acetaminophen (Tylenol) 650 mg PO Q4H PRN PRN Reason: Headache/Fever/Mild Pain (1-3) Hydrocodone Bitart/Acetaminophen ([place] 5/325) 1 tab PO Q4H PRN PRN Reason: Moderate Pain (4-6) Last Admin: 12/15/18 20:54 Dose: 1 tab Allopurinol (Zyloprim) 75 mg PO DAILY [facility] Benzonatate (Tessalon) 100 mg PO Q6H PRN PRN Reason: Cough Bisacodyl (Dulcolax) 10 mg PO DAILYPRN PRN PRN Reason: Constipation Bisacodyl (Dulcolax) 10 mg [place] Q8H PRN PRN Reason: Constipation Calcium Carbonate (Tums) 1,000 mg PO Q4H PRN PRN Reason: Heartburn or Indigestion Calcium/Vitamin D (Caltrate 600 + Vit D) 1 tab PO BID [facility] Last Admin: 12/16/18 10:04 Dose: 1 tab Carvedilol (Coreg) 25 mg PO BID [facility] Last Admin: 12/16/18 08:36 Dose: 25 mg Clonidine (Catapres) 0.1 mg PO Q4H PRN PRN Reason: SBP > 160____ Last Admin: 12/14/18 19:50 Dose: 0.1 mg Dextrose/Water (Dextrose 50%) 25 gm SLOW IVP PRN PRN PRN Reason: Hypoglycemia Furosemide (Lasix) 40 mg PO ONE [facility] Furosemide (Lasix) 40 mg PO DAILY-AC [facility] Glucagon (Glucagon) 1 mg IM PRN PRN PRN Reason: Hypoglycemia Guaifenesin (Robitussin Sf) 200 mg PO Q4H PRN PRN Reason: Cough Heparin Sodium (Porcine) (Heparin) 5,000 units SC BID [facility] Last Admin: 12/16/18 08:37 Dose: 5,000 units Hydralazine HCl (Apresoline) 10 mg SLOW IVP Q4H PRN PRN Reason: SBP > 180 and HR < 70 Last Admin: 12/14/18 04:11 Dose: 10 mg Hydralazine HCl (Apresoline) 25 mg PO TID [facility] Last Admin: 12/16/18 15:29 Dose: 25 mg Dextrose/Water (D5w) 1,000 mls @ 0 mls/hr IV .Q0M PRN PRN Reason: Hypoglycemia Insulin Human Lispro (Humalog) 0 units SC .MODERATE SLIDING SC PRN PRN Reason: Moderate Correctional Scale Last Admin: 12/16/18 11:34 Dose: 10 unit Insulin Human Lispro (Humalog) 0 units SC .BEDTIME SLIDING SC PRN PRN Reason: Bedtime Correctional Scale Last Admin: 12/14/18 00:07 Dose: 5 unit Lisinopril (Zestril) 20 mg PO DAILY [facility] Meperidine HCl (Demerol) 25 mg SLOW IVP Q3H PRN PRN Reason: Severe Pain (7-10) Last Admin: 12/16/18 13:36 Dose: 25 mg Nifedipine (Procardia Xl) 60 mg PO BID [facility] Nitroglycerin (Nitrostat) 0.4 mg SL Q5MIN PRN PRN Reason: Chest Pain Ondansetron HCl (Zofran) 4 mg IVP Q6H PRN PRN Reason: Nausea/Vomiting Pantoprazole Sodium (Protonix) 40 mg IVP 2100 [facility] Last Admin: 12/15/18 22:17 Dose: 40 mg Polyethylene Glycol (Miralax) 17 gm PO DAILY [facility] Last Admin: 12/16/18 08:36 Dose: 17 gm Promethazine HCl (Phenergan) 12.5 mg IM Q4H PRN PRN Reason: Nausea/Vomiting Senna/Docusate Sodium (Senokot S) 2 tab PO BID PRN PRN Reason: Constipation Senna/Docusate Sodium (Senokot S) 1 tab PO BID [facility] Last Admin: 12/16/18 08:36 Dose: 1 tab Sodium Chloride (Flush - Normal Saline) 10 ml IVF Q12HR [facility] Last Admin: 12/16/18 10:04 Dose: Not Given Sodium Chloride (Flush - Normal Saline) 10 ml IVF PRN PRN PRN Reason: Saline Flush Last Admin: 12/15/18 22:17 Dose: 10 ml
[2018-12-16] MEDS ORDERED: Furosemide 20 MG TAB PO SCH (15:45)
[2018-12-16] MEDS: HYDROcodone/Acetaminophen 5/325 mg Tablet PO PRN (19:43)
[2018-12-16] MEDS: Pantoprazole 40 MG VIAL IVP SCH (19:45)
--- NOTE | 2018-12-16 19:59 | PRG ---
DATE OF SERVICE: 12/16/2018 SUBJECTIVE: Patient was seen and examined at bedside and overnight events noted. Patient denies any shortness of breath or chest pain or palpitation. No history of nausea or vomiting or diarrhea or fever or chills or cramps. OBJECTIVE: GENERAL: This is an obese male, in no acute distress. VITAL SIGNS: Temperature 98.1. Heart rate 60. Respiratory rate . Blood pressure 169/88. HEENT: Atraumatic, normocephalic. Oral mucosa is moist NECK: Supple. CARDIOVASCULAR: S1, S2 heard. Rate and rhythm regular. RESPIRATORY: Clear to auscultation. GASTROINTESTINAL: Abdomen is soft. MUSCULOSKELETAL: No tenderness. No edema. DERMATOLOGIC: No skin rash. NEUROLOGIC: Alert and awake and oriented X3. No focal neurologic deficits. Moving all the extremities. PSYCHIATRIC: Mood and affect normal. LABORATORY DATA: Potassium is 4.2, BUN is 32, creatinine is 2.8. ASSESSMENT AND PLAN: 1. Acute kidney injury on chronic kidney disease. We will monitor. Renal function seems to be stable. 2. Edema. 3. Hypertension. We will titrate medication. 4. Anemia. We will up titrate medication. Monitor blood pressure. Renal function is stable. Job ID: [id number]
[2018-12-17] MEDS: HYDROcodone/Acetaminophen 5/325 mg Tablet PO PRN ×2 (04:16)
[2018-12-17] MEDS ORDERED: Furosemide 40 MG TAB PO SCH (07:30)
[2018-12-17 08:13] VITALS: TEMP 98.2
[2018-12-17] MEDS ORDERED: Allopurinol 100 MG TAB PO SCH (09:00)
[2018-12-17] MEDS ORDERED: Lisinopril 20 MG TAB PO SCH (09:00)
[2018-12-17] MEDS: hydrALAZINE 25 MG TAB PO SCH (09:28)
[2018-12-17] MEDS: Polyethylene Glycol 3350 17 GM Packet PO SCH (09:29)
[2018-12-17] MEDS ORDERED: hydrALAZINE 25 MG TAB PO SCH ×3 (09:30→15:00)
[2018-12-17] MEDS: Carvedilol 25 MG TAB PO SCH (09:39)
[2018-12-17] MEDS: Calcium Carbonate + Vit D 1 TAB PO SCH (09:39)
[2018-12-17] MEDS: NIFEdipine XL 60 MG TAB PO SCH (09:40)
[2018-12-17] MEDS: Senokot S 8.6-50 MG TAB PO SCH (09:40)
[2018-12-17] MEDS: Heparin 5,000 UNITS/ML VIAL SC SCH (09:41)
[2018-12-17 09:42] VITALS: BP 166/95
--- NOTE | 2018-12-17 11:34 | PRG ---
DATE OF SERVICE: 12/17/2018 SUBJECTIVE: Patient was seen and examined at bedside and overnight events noted. Patient denies any shortness of breath or chest pain or palpitation. No history of nausea or vomiting or diarrhea or fever or chills or cramps. OBJECTIVE: GENERAL: This is an obese male, in no apparent distress. VITAL SIGNS: Temperature 98.2, pulse . HEENT: Atraumatic, normocephalic. Oral mucosa is moist NECK: Supple. CARDIOVASCULAR: S1, S2 heard. Rate and rhythm regular. RESPIRATORY: Clear to auscultation. GASTROINTESTINAL: Abdomen is soft. MUSCULOSKELETAL: No tenderness. No edema. DERMATOLOGIC: No skin rash. NEUROLOGIC: Alert and awake and oriented X3. No focal neurologic deficits. Moving all the extremities. PSYCHIATRIC: Mood and affect normal. LABORATORY DATA: Not done today. ASSESSMENT AND PLAN: 1. Acute kidney injury on chronic kidney disease. Monitor renal function. 2. Edema. 3. Hypertension. 4. Anemia. We will monitor. 5. We will up titrate blood pressure medication. Lasix as tolerated. We will follow. Cautious use of lisinopril. Job ID: [id number]
--- NOTE | 2018-12-19 00:05 | EKG ---
Test Reason : Blood Pressure : / mmHG Vent. Rate : 077 BPM Atrial Rate : 077 BPM P-R Int : 170 ms QRS Dur : 090 ms QT Int : 436 ms P-R-T Axes : 041 -42 123 degrees QTc Int : 493 ms Normal sinus rhythm Possible Left atrial enlargement Left axis deviation Septal infarct , age undetermined Abnormal ECG No changes from JAN 2015 Confirmed by ADAMS CRANE, QASIM ([id number]), editor farm journal RANDY WAGNER ([id number]) on 12/19/2018 12:05:47 AM Referred By: Confirmed By:QASIM LAMAS MD
== END 2018-12-17 11:26 | disposition home or self-care (01) | DRG 439 ==
LOC: ERS 15:25 → ERHOLD 18:06 → 2NO 21:08
PROVIDERS: ADMIT Internal Medicine; ATTEND Internal Medicine
DX: K85.20 Alcohol induced acute pancreatitis without necrosis or infection (principal); I13.0 Hypertensive heart and chronic kidney disease with heart failure and stage 1 through stage 4 chronic kidney disease, or unspecified chronic kidney disease; I50.32 Chronic diastolic (congestive) heart failure; N17.9 Acute kidney failure, unspecified; E87.1 Hypo-osmolality and hyponatremia; N18.4 Chronic kidney disease, stage 4 (severe); E11.22 Type 2 diabetes mellitus with diabetic chronic kidney disease; E11.65 Type 2 diabetes mellitus with hyperglycemia; I25.10 Atherosclerotic heart disease of native coronary artery without angina pectoris; D63.1 Anemia in chronic kidney disease
CPT/HCPCS: 36415; 36416; 71045; 74176; 80048; 80053; 80061; 81003; 81015; 82150; 82274; 82550; 82553; 83690; 83735; 83880; 84100; 84484; 85025; 93005; 93306; 96361; 96374; 96375; 96376; C9113; J0360; J1644; J2175; J2270; J2405

== ENCOUNTER 2019-04-21 13:21 | Observation (INO) | payer BC ==
[2019-04-21 14:01] LABS: #Eosinphils 0.2 thou/uL (0.0-0.7); #Lymphocytes 1.8 thou/uL (1.20-3.40); #Monocytes 0.8 thou/uL (0.11-0.59); #Neutrophils 4.5 thou/uL (1.40-6.50); %Basophils 0.3 % (0.0-1.0); %Eosinophils 2.2 % (0.0-10.0); %Lymphocytes 25.4 % (21.0-51.0); %Monocytes 10.5 % (0.0-10.0); %Neutrophils 61.5 % (42.0-75.0); Hemoglobin 10.6 g/dL (14.0-18.0); Mean Corpuscular HGB CONC 32.6 g/dL (32.0-36.0); Mean Corpuscular Hemoglobin 30.4 pg (27.0-31.0); Mean Corpuscular Volume 93.1 fL (78.0-98.0); Mean Platelet Volume 8.6 fL (7.4-10.4); Platelet Count 174 thou/uL (130-400); RBC Distribution Width 12.2 % (11.5-14.5); White Blood Cell (WBC) Count 7.3 thou/uL (4.8-10.8)
--- NOTE | 2019-04-21 14:27 | RAD ---
PORTABLE CHEST 1 VIEW: DATE: 04/21/2019. TIME: 1:59 p.m. HISTORY: Left-sided chest pain. FINDINGS: Comparison is made with the exam of 12/13/2018. The heart size is normal. The lungs are expanded without focal areas of consolidation, pneumothorace s, or pleural effusions. There are degenerative changes in the spine. There is mild prominence of the pulmonary vascularity. POS: OFF
[2019-04-21 14:28] LABS: ALT (SGPT) 9 U/L (8-55); AST (SGOT) 19 U/L (5-34); Albumin 3.3 g/dL (3.5-5.0); Alkaline Phosphatase 66 U/L (40-150); Anion Gap 13 mmol/L (10-20); BUN (Urea Nitrogen) 43 mg/dL (8.4-25.7); Bilirubin, Total 0.4 mg/dL (0.2-1.2); Calc. Creatinine Clearance 0 mL/min (70-130); Calcium 8.5 mg/dL (7.8-10.44); Carbon Dioxide 24 mmol/L (22-29); Chloride 107 mmol/L (98-107); Estimated GFR-MDRD 17; Globulin 2.6 g/dL (2.4-3.5); Glucose 99 mg/dL (70-105); Potassium 4.2 mmol/L (3.5-5.1); Protein, Total 5.9 g/dL (6.0-8.3); Sodium 140 mmol/L (136-145)
[2019-04-21 14:46] LABS: CKMB 3.2 ng/mL (0-6.6)
[2019-04-21 17:28] LABS: Troponin I 0.037 ng/mL (< 0.028)
[2019-04-21] MEDS ORDERED: Nitroglycerin 2% Ointment 1 INCH/1 GM Packet ONE (18:07)
[2019-04-21] MEDS ORDERED: Furosemide 40 MG/4 ML VIAL ONE (18:07)
[2019-04-21] MEDS ORDERED: Acetaminophen 325 MG TAB ONE (18:07)
[2019-04-21] MEDS ORDERED: Ondansetron PF 4 MG/2 ML Vial IVP PRN (18:56)
[2019-04-21] MEDS ORDERED: Ondansetron ODT 4 MG TAB PO PRN (18:56)
[2019-04-21] MEDS ORDERED: Acetaminophen 650 MG Suppository PR PRN (18:56)
[2019-04-21] MEDS ORDERED: Guaifenesin DM 100-10/5 ML UDCUP PO PRN (18:56)
[2019-04-21] MEDS ORDERED: Acetaminophen 325 MG TAB PO PRN (18:56)
[2019-04-21] MEDS ORDERED: Dextrose 5% in Water 1,000 ML IV PRN (18:59)
[2019-04-21] MEDS ORDERED: Dextrose 50% Abboject 50 ML SYRINGE SLOW IVP PRN (18:59)
[2019-04-21] MEDS ORDERED: HumaLOG 300 UNITS/3 ML VIAL SC PRN (18:59)
[2019-04-21] MEDS ORDERED: Sodium Chloride 0.9% 1,000 ML IV SCH (19:00)
--- NOTE | 2019-04-21 19:50 | ULT ---
ULTRASOUND WITH DOPPLER DUPLEX VENOUS LOWER EXTREMITY LEFT 04/21/19 CPT: 74931 ICD-10-PCS: B54D HISTORY: Pain and edema. TECHNIQUE: Color flow Doppler, spectral waveform analysis of pulsed Doppler, and dalton-scale imaging with mireille jordan and augmentation, were used to evaluate the left common femoral, femoral, popliteal, posterior t ibial, and superficial femoral, veins; and the proximal portions of the profunda femoral and greater saphenous, veins. FINDINGS: Appropriate compressibility and flow within the deep vein system left lower extremity without evidenc e of DVT. IMPRESSION: No DVT of the visualized left lower extremity. POS: EMMANUELLEK
--- NOTE | 2019-04-21 20:38 | HP ---
CHIEF COMPLAINT: Left-sided chest pain and shortness of breath. HISTORY OF PRESENT ILLNESS: Mr. 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 The patient states he has been in his usual state of health until last week when he began to note increasing shortness of breath. The patient reports having pain that started several days ago on the left side of his chest. He saw his primary care physician and was believed to have musculoskeletal pain, however, has persisted prompting him to come in for evaluation today. The patient states the left side of his chest is tender and he does not recall any trauma or strenuous activity. He states the pain is tolerable when he is resting and worsened suddenly with certain movements. He has no increase in his pain with deep inspiration. The patient reports shortness of breath has been going on for quite some time and has gradually worsened. He reports a cough productive for white sputum and denies any hemoptysis. He states the shortness of breath is noticeable with exertion. He is not short of breath at rest. Does not use any oxygen at home or any inhalers. Has not been diagnosed with COPD in the past, but does admit to smoking, though currently he smokes one pack every 3 days. The patient denies any recent fevers, chills, or sweats. In the ER, he underwent laboratory studies including a BNP which is elevated at 1535.9. He had a chest x-ray done that did not show any evidence of pleural effusion. He did have mild prominence of the pulmonary vasculature. He was treated with Lasix in the ER due to concerns for CHF exacerbation being the reason for his symptoms. REVIEW OF SYSTEMS: The patient reports having a good appetite. Denies any nausea or vomiting. No muscle aches or joint pains. No fevers, chills, or sweats. No headaches or dizziness. No abdominal pain or cramping. He is moving his bowels as normal and denies having any urinary symptoms. All other review of systems are negative. ALLERGIES: TRAMADOL CURRENT MEDICATIONS: 1. Hydralazine. 2. Glipizide. 3. Terazosin. 4. Simvastatin. 5. Fish oil. 6. Multivitamin. 7. Lisinopril. 8. Iron. 9. Lantus. 10. Furosemide. 11. Carvedilol. 12. Calcium/vitamin D3. 13. Aspirin. PAST MEDICAL HISTORY: 1. Hypertension. 2. Diabetes mellitus, insulin dependent. 3. Chronic kidney disease. 4. Tobacco use. 5. Congestive heart failure. 6. Coronary artery disease. 7. Hyperlipidemia. 8. Gout. PAST SURGICAL HISTORY: Bilateral cataract surgery. SOCIAL HISTORY: The patient reports drinking an occasional alcoholic beverage approximately 3 times a week. Previously, he reports drinking a gallon and a half of liquor a week. States he has cut down significantly. Reports smoking half a pack every 3 days. Denies any illicit drug use. PHYSICAL EXAMINATION: GENERAL: The patient appears well developed, well nourished, and is in no acute distress. VITAL SIGNS: Temperature 99, pulse 69, respirations 18, O2 saturation 97% on room air, and blood pressure 125/97. HEENT: Normocephalic and atraumatic. Pupils are equal, round, and reactive to light. Sclerae icterus. Oropharynx is clear. NECK: Supple. No supraclavicular lymphadenopathy. LUNGS: Clear to auscultation bilaterally, however, reduced breath sounds at the bilateral bases. CARDIAC: Regular rate and rhythm. Left-sided chest wall tenderness with palpation. No soft tissue or bony deformity. No swelling. No redness. No bruising. ABDOMEN: Soft, nontender, and nondistended. Normoactive bowel sounds present. EXTREMITIES: No lower leg edema present on exam. No calf tenderness. He does have mild tenderness in the posterior left thigh. LABORATORY DATA: White blood count 7.3, hemoglobin 10.6, hematocrit 32.6, platelets 174. Sodium 140, potassium 4.2, chloride 107, BUN 43, creatinine 4.37 elevated from last reading of 2.83 in November 2018. GFR 17 reduced from 28 in November 2018. LFTs unremarkable. Troponin is 0.037 and 0.034. BNP 1535.9. IMAGING DATA: As mentioned above in HPI. Last echocardiogram was done on December 15, 2018, which showed an EF of 60% to 65% with moderate LVH. The left atrium is moderately dilated. Normal right atrium size. Normal size of right ventricle cavity. Mild aortic regurgitation noted. Trace tricuspid regurgitation and mild pulmonic regurgitation present with dilation of the aortic root. IMPRESSION AND PLAN: Mr. Reyna is a pleasant 58-year-old man, who is being admitted for management of the followin. Chest pain. Appears to be musculoskeletal in nature given the fact that it is tender to palpation and with certain movement. We will continue to trend troponins. 2. Shortness of breath. Seems to have been progressively worsening for the last several months and more noticeable in the last couple of weeks. He has a known history of congestive heart failure with a significantly elevated BNP today. No signs of fluid overload on exam or on the chest x-ray. He has been given Lasix in the ER. Recent echocardiogram was done in November, therefore repeat not indicated. He also does have long-standing history of tobacco use and symptoms may be also associated with underlying chronic obstructive pulmonary disease. The patient did mention aching in the left posterior thigh a week ago, which is associated with the more recent worsening shortness of breath. We will obtain a venous Doppler to rule out deep venous thrombosis/possibility of pulmonary embolism. 3. Acute kidney injury/chronic kidney disease. The patient with further reduce GFR from baseline, which is currently 17 and previously 28 in November 2018. He has been seen by Dr. Grant in the past. Consult has been placed for Dr. Grant. Very gentle hydration ordered. We will continue to monitor. 4. Diabetes mellitus. Initiate insulin sliding scale. Monitor blood glucose. 5. Hypertension. Resume home medications once verified. Monitor blood pressure. 6. Gastrointestinal prophylaxis. 7. Deep venous thrombosis prophylaxis. Hold on mechanical SCDs until venous Doppler done. 8. Full code status. His surrogate decision maker would be his , Jasmine Reyna. The patient's case to be discussed with attending for further input and recommendations. Job ID: [id number] [facility]ITAL[facility]
[2019-04-21 20:53] LABS: Troponin I 0.042 ng/mL (< 0.028)
[2019-04-21] MEDS ORDERED: Famotidine/PF 20 mg/2ml Vial SLOW IVP SCH (21:00)
[2019-04-21] MEDS ORDERED: hydrALAZINE 25 MG TAB PO SCH (21:15)
[2019-04-21] MEDS ORDERED: Simvastatin 40 MG TAB PO SCH (21:15)
[2019-04-21] MEDS ORDERED: Terazosin HCl 5 MG CAP PO SCH (21:15)
[2019-04-21] MEDS ORDERED: Carvedilol 25 MG TAB PO SCH (21:30)
[2019-04-21 21:33] VITALS: BMI 27.8
[2019-04-22 01:05] LABS: Troponin I 0.035 ng/mL (< 0.028)
[2019-04-22 05:51] LABS: #Eosinphils 0.2 thou/uL (0.0-0.7); #Lymphocytes 1.6 thou/uL (1.20-3.40); #Monocytes 0.7 thou/uL (0.11-0.59); #Neutrophils 3.8 thou/uL (1.40-6.50); %Basophils 0.1 % (0.0-1.0); %Eosinophils 3.3 % (0.0-10.0); %Lymphocytes 25.2 % (21.0-51.0); %Neutrophils 60.4 % (42.0-75.0); Hemoglobin 10.2 g/dL (14.0-18.0); Mean Corpuscular HGB CONC 33.2 g/dL (32.0-36.0); Mean Corpuscular Hemoglobin 30.8 pg (27.0-31.0); Mean Corpuscular Volume 92.9 fL (78.0-98.0); Mean Platelet Volume 9.1 fL (7.4-10.4); Platelet Count 156 thou/uL (130-400); RBC Distribution Width 12.1 % (11.5-14.5); Red Blood Cell (RBC) Count 3.31 mill/uL (4.70-6.10); White Blood Cell (WBC) Count 6.2 thou/uL (4.8-10.8)
[2019-04-22 06:16] LABS: Anion Gap 13 mmol/L (10-20); BUN (Urea Nitrogen) 43 mg/dL (8.4-25.7); Calc. Creatinine Clearance 29 mL/min (70-130); Calcium 8.5 mg/dL (7.8-10.44); Carbon Dioxide 23 mmol/L (22-29); Chloride 107 mmol/L (98-107); Estimated GFR-MDRD 18; Glucose 209 mg/dL (70-105); Potassium 4.2 mmol/L (3.5-5.1); Sodium 139 mmol/L (136-145)
[2019-04-22] MEDS: hydrALAZINE 25 MG TAB PO SCH ×3 (08:09→20:55)
[2019-04-22] MEDS: Aspirin 325 mg Enteric Coated Tablet PO SCH (08:11)
[2019-04-22] MEDS: Carvedilol 25 MG TAB PO SCH ×2 (08:11→20:55)
[2019-04-22] MEDS ORDERED: Furosemide 40 MG TAB PO SCH (09:00)
[2019-04-22] MEDS: HumaLOG 300 UNITS/3 ML VIAL SC PRN ×2 (11:47→18:16)
[2019-04-22] MEDS: hydrALAZINE 20 MG/ML VIAL SLOW IVP PRN ×2 (13:33→18:17)
--- NOTE | 2019-04-22 15:12 | PDOC.EVN ---
Event Note - Event Note Event Note: I HAVE PERSONALLY SEEN PT AND REVIEWED CHART AND AGREED WITH PHYSICAL FINDING AND ASSESSMENT OF STORE ADMINISTRATIVE ASSISTANT,
--- NOTE | 2019-04-22 17:34 | PDOC.PN ---
- Subjective Encounter Start Date: 04/22/19 Encounter Start Time: 17:33 Patient sitting in bed, he reports feeling better. He reports chest pain worse with movement of his arms and twisting his body. He denied palpitations, shortness of breath or abdominal pain. - Objective Resuscitation Status - Order Detail: 04/21/19 18:56 Resuscitation Status Routine Co-Sign Provider: Resuscitation Status: FULL: Full Resuscitation MAR Reviewed: Yes Vital Signs & Weight: Vital Signs (12 hours) Temp Pulse Resp BP BP Pulse Ox 04/22/19 16:10 66 183/98 H 04/22/19 15:47 98.6 F 63 16 183/98 H 100 04/22/19 13:33 63 171/82 H 04/22/19 11:50 98.9 F 63 16 178/99 H 97 04/22/19 08:09 61 180/95 H 04/22/19 07:51 97.5 F L 63 15 180/95 H 96 Weight Weight 234 lb 12.8 oz I&O: 04/21/19 04/22/19 04/23/19 06:59 06:59 06:59 Intake Total 750 10 Output Total 1250 Balance -500 10 Result Diagrams: 04/22/19 05:23 04/22/19 05:23 Additional Labs: Accuchecks 04/22/19 04/22/19 04/21/19 16:52 10:27 22:02 POC Glucose 258 H 213 H 257 H Radiology Reviewed by me: Yes Phys Exam - Physical Examination Constitutional: NAD HEENT: moist MMs, oral pharynx no lesions Neck: supple Respiratory: no wheezing, clear to auscultation bilateral Cardiovascular: RRR, no significant murmur Reproducible pain tp palpation Gastrointestinal: soft, positive bowel sounds Musculoskeletal: no edema, pulses present Neurological: normal sensation, moves all 4 limbs Lymphatic: no nodes Psychiatric: A&O x 3 Skin: normal turgor, cap refill <2 seconds Dx/Plan (1) Acute kidney injury superimposed on CKD Code(s): N17.9 - ACUTE KIDNEY FAILURE, UNSPECIFIED; N18.9 - CHRONIC KIDNEY DISEASE, UNSPECIFIED Status: Acute Comment: improving (2) CAD (coronary artery disease) Code(s): I25.10 - ATHSCL HEART DISEASE OF [place] CORONARY ARTERY W/O ANG PCTRS Status: Chronic (3) Chronic diastolic heart failure secondary to coronary artery disease Code(s): I50.32 - CHRONIC DIASTOLIC (CONGESTIVE) HEART FAILURE; I25.10 - ATHSCL HEART DISEASE OF [place] CORONARY ARTERY W/O ANG PCTRS Status: Chronic (4) DM2 (diabetes mellitus, type 2) Status: Chronic - Plan cont current plan of care, plan discussed w/ family * Continue home medications, hold Furosemide dose for now per Nephrology * Nephrology following and patient is with acute on CKD * He will likely require dialysis in near future * Repeat BMP in am * May likely discharge with outpatient follow up over the weekend
[2019-04-22] MEDS ORDERED: cloNIDine 0.1 MG TAB PO PRN (20:22)
[2019-04-22] MEDS ORDERED: NIFEdipine XL 60 MG TAB PO SCH (20:45)
[2019-04-22] MEDS: cloNIDine 0.2 MG TAB PO SCH (20:55)
[2019-04-22] MEDS: Nitroglycerin 2% Ointment 1 INCH/1 GM Packet TOP SCH (20:55)
[2019-04-22] MEDS ORDERED: Terazosin HCl 5 MG CAP PO SCH (21:00)
[2019-04-22] MEDS ORDERED: Simvastatin 40 MG TAB PO SCH (21:00)
[2019-04-22] MEDS ORDERED: Insulin Glargine 10 UNITS in Pre-Filled Syringe 1 EACH SC SCH (21:00)
[2019-04-22] MEDS ORDERED: Famotidine 20 MG TAB PO SCH (21:00)
[2019-04-22] MEDS ORDERED: Atorvastatin Calcium 20 MG TAB PO SCH (21:00)
[2019-04-23] MEDS: Nitroglycerin 2% Ointment 1 INCH/1 GM Packet TOP SCH (06:15)
[2019-04-23 06:53] LABS: Anion Gap 10 mmol/L (10-20); BUN (Urea Nitrogen) 40 mg/dL (8.4-25.7); Calc. Creatinine Clearance 29 mL/min (70-130); Calcium 8.5 mg/dL (7.8-10.44); Carbon Dioxide 25 mmol/L (22-29); Chloride 108 mmol/L (98-107); Estimated GFR-MDRD 19; Glucose 142 mg/dL (70-105); Potassium 4.4 mmol/L (3.5-5.1); Sodium 139 mmol/L (136-145)
[2019-04-23] MEDS ORDERED: NIFEdipine XL 60 MG TAB PO SCH (09:00)
[2019-04-23] MEDS: cloNIDine 0.2 MG TAB PO SCH (09:01)
[2019-04-23] MEDS: Aspirin 325 mg Enteric Coated Tablet PO SCH (09:01)
[2019-04-23] MEDS: hydrALAZINE 25 MG TAB PO SCH (09:01)
[2019-04-23] MEDS: Carvedilol 25 MG TAB PO SCH (09:02)
[2019-04-23] MEDS: HumaLOG 300 UNITS/3 ML VIAL SC PRN (11:29)
[2019-04-23 11:38] VITALS: BP 166/88; TEMP 97.5
--- NOTE | 2019-04-23 13:24 | PRG ---
DATE OF SERVICE: 04/23/2019 SUBJECTIVE: Patient was seen and examined at bedside and overnight events noted. Patient denies any shortness of breath or chest pain or palpitation. No history of nausea or vomiting or diarrhea or fever or chills or cramps. OBJECTIVE: GENERAL: This is a well-built male, in no apparent distress. VITAL SIGNS: Temperature 97.5. Pulse 64. Respiratory rate 15. Blood pressure 166/88. HEENT: Atraumatic, normocephalic. Oral mucosa is moist NECK: Supple. CARDIOVASCULAR: S1, S2 heard. Rate and rhythm regular. RESPIRATORY: Clear to auscultation. GASTROINTESTINAL: Abdomen is soft. MUSCULOSKELETAL: No tenderness. No edema. DERMATOLOGIC: No skin rash. NEUROLOGIC: Alert and awake and oriented X3. No focal neurologic deficits. Moving all the extremities. PSYCHIATRIC: Mood and affect normal. LABORATORY DATA: Potassium is 4.4, BUN is 40, and creatinine is 4.02. ASSESSMENT AND PLAN: 1. Chronic kidney disease stage 4. Stable labs. 2. Edema, controlled. 3. Cardiorenal syndrome. 4. Anemia. Labs are stable. Advised to use Lasix p.r.n. and follow up with his customs appraiser at [facility], Dr. Triana. We will follow. Job ID: [id number]
--- NOTE | 2019-04-25 10:56 | CON ---
DATE OF CONSULTATION: 04/22/2019 CONSULTING PHYSICIAN: LAXMI Nava REASON FOR CONSULT: Acute kidney injury. REASON FOR ADMISSION: Chest pain. HISTORY OF PRESENT ILLNESS: This is a 58-year-old male with history of type 2 diabetes, hypertension, CHF, came to the hospital with above complaints. Nephrology was consulted. The patient did see Dr. Triana at [facility] and last time I saw him was in [facility]. The patient is feeling a bit better. No fever or chills. No nausea. No vomiting. PAST MEDICAL HISTORY: Positive for hypertension, type 2 diabetes, CKD, congestive heart failure, coronary artery disease, hyperlipidemia, gout. PAST SURGICAL HISTORY: Cataract surgery. HOME MEDICATIONS: 1. Hydralazine. 2. Glipizide. 3. Terazosin. 4. Simvastatin. 5. Fish oil. 6. Lisinopril. 7. Iron. 8. Lantus. 9. Furosemide. 10. Carvedilol. 11. Calcium. 12. Aspirin. ALLERGIES: TRAMADOL. SOCIAL HISTORY: No smoking, alcohol, or illicit drug abuse. FAMILY HISTORY: No history of kidney disease. REVIEW OF SYSTEMS: CONSTITUTIONAL: Negative for weight loss or gain, ability to conduct usual activities. SKIN: Negative for rash, itching. EYES: Negative for double vision, pain. ENT/MOUTH: Negative for nose bleeding, neck stiffness, pain, tenderness. CARDIOVASCULAR: Negative for palpitations, dyspnea on exertion, orthopnea. RESPIRATORY: Negative for shortness of breath, wheezing, cough, hemoptysis, fever or night sweats. GASTROINTESTINAL: Negative for poor appetite, abdominal pain, heartburn, nausea, vomiting, constipation, or diarrhea. GENITOURINARY: Negative for urgency, frequency, dysuria, nocturia. MUSCULOSKELETAL: Negative for pain, swelling. NEUROLOGIC/PSYCHIATRIC: Negative for anxiety, depression. ALLERGY/IMMUNOLOGIC: Negative for skin rash, bleeding tendency. PHYSICAL EXAMINATION: GENERAL: Reveals a well-built male, in no apparent distress. VITAL SIGNS: Temperature 98.9, pulse 63, respiratory rate 16, blood pressure 178/99. HEENT: Atraumatic and normocephalic. Oral mucosa is moist. NECK: Supple. CV: S1 and S2 heard. Rate and rhythm regular. RESPIRATORY: Clear. GI: Abdomen is soft. MUSCULOSKELETAL: 1+ edema. DERMATOLOGIC: No skin rash. NEUROLOGIC: Alert and awake. PSYCHIATRIC: Normal mood and affect. LABORATORY DATA: Hemoglobin is 10.2, potassium 4.2, BUN is 43, creatinine is 4.09. ASSESSMENT AND PLAN: 1. Chronic kidney disease stage 4 with acute kidney injury. We will monitor. Avoid nephrotoxins. 2. Anemia. 3. Hypertension, stable. 4. Edema, controlled. Plan is to monitor renal function closely, avoid nephrotoxins, and hold Lasix for now. We will monitor. Thank you for the consult. Job ID: [id number]
== END 2019-04-23 14:02 | disposition home or self-care (01) ==
LOC: ERS 13:21 → 2SW 19:38
PROVIDERS: ADMIT Internal Medicine; ATTEND Internal Medicine
DX: R07.9 Chest pain, unspecified (principal); R06.02 Shortness of breath; I13.0 Hypertensive heart and chronic kidney disease with heart failure and stage 1 through stage 4 chronic kidney disease, or unspecified chronic kidney disease; E11.22 Type 2 diabetes mellitus with diabetic chronic kidney disease; N17.9 Acute kidney failure, unspecified; N18.9 Chronic kidney disease, unspecified; I50.9 Heart failure, unspecified; F17.210 Nicotine dependence, cigarettes, uncomplicated; I25.10 Atherosclerotic heart disease of native coronary artery without angina pectoris; E78.5 Hyperlipidemia, unspecified; M10.9 Gout, unspecified; Z88.8 Allergy status to other drugs, medicaments and biological substances; Z79.4 Long term (current) use of insulin; Z79.82 Long term (current) use of aspirin; Z79.899 Other long term (current) drug therapy
CPT/HCPCS: 36415; 36416; 71045; 80048; 80053; 82553; 83880; 84484; 85025; 93005; 96374; 96375; 96376; G0378; J0360; J1825; J1940; S0028

== ENCOUNTER 2019-11-12 15:16 | Emergency (ER) | payer BC ==
[2019-11-12] MEDS ORDERED: Morphine 4 MG/ML VIAL ONE (16:28)
[2019-11-12 16:33] LABS: #Basophils 0.1 thou/uL (0.0-0.2); #Eosinphils 0.4 thou/uL (0.0-0.7); #Monocytes 0.7 thou/uL (0.11-0.59); %Basophils 0.8 % (0.0-1.0); %Eosinophils 5.1 % (0.0-10.0); %Lymphocytes 27.7 % (21.0-51.0); %Monocytes 10.1 % (0.0-10.0); %Neutrophils 56.4 % (42.0-75.0); Hemoglobin 12.9 g/dL (14.0-18.0); Mean Corpuscular HGB CONC 33.6 g/dL (32.0-36.0); Mean Corpuscular Hemoglobin 30.7 pg (27.0-31.0); Mean Corpuscular Volume 91.3 fL (78.0-98.0); Mean Platelet Volume 9.3 fL (7.4-10.4); Platelet Count 124 thou/uL (130-400); RBC Distribution Width 12.6 % (11.5-14.5); White Blood Cell (WBC) Count 7.1 thou/uL (4.8-10.8)
[2019-11-12 16:50] LABS: ALT (SGPT) 10 U/L (8-55); AST (SGOT) 15 U/L (5-34); Albumin 3.9 g/dL (3.5-5.0); Alkaline Phosphatase 69 U/L (40-110); Anion Gap 13 mmol/L (10-20); BUN (Urea Nitrogen) 26 mg/dL (8.4-25.7); Bilirubin, Total 0.3 mg/dL (0.2-1.2); Calc. Creatinine Clearance 0 mL/min (70-130); Calcium 9.3 mg/dL (7.8-10.44); Carbon Dioxide 26 mmol/L (22-29); Chloride 104 mmol/L (98-107); Estimated GFR-MDRD 14; Globulin 3.8 g/dL (2.4-3.5); Glucose 166 mg/dL (70-105); Potassium 4.2 mmol/L (3.5-5.1); Protein, Total 7.7 g/dL (6.0-8.3); Sodium 139 mmol/L (136-145)
[2019-11-12 16:53] LABS: Troponin I 0.033 ng/mL (< 0.028)
--- NOTE | 2019-11-12 17:39 | RAD ---
CERVICAL SPINE RADIOGRAPHS THREE VIEWS: 11/12/19 PROVIDED CLINICAL HISTORY: Neck pain. FINDINGS: No comparisons. There is straightening of the normal cervical lordosis. There is advanced multilevel cervical disc de generative change with conspicuous anterior paravertebral osteophyte formation. Vertebral body height s appear preserved. No definite prevertebral soft tissue swelling apparent. The visualized lung apic es appear clear. Partially visualized vascular catheter overlying the right neck. No definite evidenc e for fracture. IMPRESSION: Advanced multilevel disc degenerative change. POS: [facility]
--- NOTE | 2019-11-12 19:19 | MRI ---
MRI OF CERVICAL SPINE PERFORMED WITHOUT CONTRAST ENHANCEMENT: 11/12/19 HISTORY: Worsening neck pain. Concern for epidural abscess. FINDINGS: No IV contrast was given due to patient's markedly elevated creatinine. The vertebral bodies are norm al in height. There is severe disc narrowing at all the vertebral body levels. The cord signal change appears normal. There is no signs for a discitis. I do not see any evidence for an epidural abscess. C2-3: Mild degree of canal stenosis with posterior osteophytic change. C3-4: Moderately severe canal stenosis with a posterior osteophytic bar. Bilateral foraminal narrowi ng which is worse on the right. C4-5: Moderately severe canal stenosis with a posterior osteophytic bar. Marked bilateral foraminal n arrowing worse on the right. C5-6: Moderately severe canal stenosis also present at this level. Also mild bilateral foraminal narr owing. C6-7: The canal shows mild stenosis and mild left foraminal narrowing. C7-T1: Disc and posterior osteophytic changes at this level causing moderate degree of canal stenosis and moderately severe bilateral foraminal narrowing, more severe on the left. Some minimal anteroli sthesis also present at this level. IMPRESSION: Multilevel areas of canal and foraminal stenosis. No signs for an epidural abscess or discitis. POS: [facility]
--- NOTE | 2019-11-12 19:23 | MRI ---
MRI OF THORACIC SPINE PERFORMED WITHOUT CONTRAST ENHANCEMENT: 11/12/19 HISTORY: Neck and back pain. Concern for epidural abscess. Patient is on dialysis. There are degenerative changes along the course of the thoracic spine. The vertebral body height is n ormal. There is some [place]ic type changes seen. I see no evidence for any discitis. The thoracic cord i s normal in caliber and normal in signal change. No epidural abscess. IMPRESSION: Arthritic changes of the spine. No signs of any epidural collection. POS: [facility]
[2019-11-12] MEDS ORDERED: HYDROcodone/Acetaminophen 5/325 mg Tablet ONE (19:26)
[2019-11-12 19:29] LABS: Troponin I 0.029 ng/mL (< 0.028)
--- NOTE | 2019-11-15 14:34 | EKG ---
Test Reason : Blood Pressure : / mmHG Vent. Rate : 067 BPM Atrial Rate : 067 BPM P-R Int : 190 ms QRS Dur : 088 ms QT Int : 450 ms P-R-T Axes : 009 -36 081 degrees QTc Int : 475 ms Normal sinus rhythm Left axis deviation Septal infarct , age undetermined Abnormal ECG Confirmed by JOY BAXTER DO ([id number]), tape editor AMINATA OLMOS ([id number]) on 11/15/2019 2:33:31 PM Referred By: Confirmed By:JOY BAXTER DO
== END 2019-11-12 20:17 | disposition home or self-care (01) ==
LOC: ERS 15:16
DX: M48.02 Spinal stenosis, cervical region (principal); M10.9 Gout, unspecified; I25.10 Atherosclerotic heart disease of native coronary artery without angina pectoris; E11.9 Type 2 diabetes mellitus without complications; E78.5 Hyperlipidemia, unspecified; I10 Essential (primary) hypertension; F17.210 Nicotine dependence, cigarettes, uncomplicated; Z95.5 Presence of coronary angioplasty implant and graft; Z79.899 Other long term (current) drug therapy; Z79.4 Long term (current) use of insulin
CPT/HCPCS: 72040; 72141; 72146; 80053; 84484; 85025; 85652; 86140; 93005; 96374; J2270

== ENCOUNTER 2019-12-19 17:37 | Emergency (ER) | payer BC ==
--- NOTE | 2019-12-19 19:19 | RAD ---
RIGHT SHOULDER THREE VIEWS: History: Right shoulder pain. FINDINGS: Marked arthritic changes of the glenohumeral joint space are noted. Ossified body is seen within the axillary pouch region. Vascular calcifications are seen. IMPRESSION: No acute findings. Marked arthritic changes of the glenohumeral joint space. POS: [facility]
== END 2019-12-19 21:06 | disposition home or self-care (01) ==
LOC: ERS 17:37
DX: M75.91 Shoulder lesion, unspecified, right shoulder (principal); M10.9 Gout, unspecified; I25.10 Atherosclerotic heart disease of native coronary artery without angina pectoris; E11.9 Type 2 diabetes mellitus without complications; I10 Essential (primary) hypertension; E78.5 Hyperlipidemia, unspecified; F17.210 Nicotine dependence, cigarettes, uncomplicated

== ENCOUNTER 2020-02-16 11:24 | Observation (INO) | payer BC ==
--- NOTE | 2020-02-16 11:49 | RAD ---
Exam: Chest one view HISTORY:Syncope Comparison: 04/21/2019 FINDINGS: Cardiac silhouette: Normal Aorta: Unremarkable Pulmonary vessels: Normal Costophrenic angles: Clear LUNGS: No masses or consolidation. Lines and tubes: Right-sided HemoSplit osseous catheter terminates over the right atrium. Pneumothorax: None Osseous abnormalities: None IMPRESSION: No acute cardiopulmonary process.
[2020-02-16 12:14] LABS: #Eosinphils 0.2 thou/uL (0.0-0.7); #Lymphocytes 1.3 thou/uL (1.20-3.40); #Neutrophils 6.7 thou/uL (1.40-6.50); %Basophils 0.4 % (0.0-1.0); %Eosinophils 1.8 % (0.0-10.0); %Lymphocytes 14.5 % (21.0-51.0); %Monocytes 10.9 % (0.0-10.0); %Neutrophils 72.4 % (42.0-75.0); Hemoglobin 10.4 g/dL (14.0-18.0); Mean Corpuscular HGB CONC 34.2 g/dL (32.0-36.0); Mean Corpuscular Hemoglobin 31.3 pg (27.0-31.0); Mean Corpuscular Volume 91.6 fL (78.0-98.0); RBC Distribution Width 12.7 % (11.5-14.5); Red Blood Cell (RBC) Count 3.33 mill/uL (4.70-6.10); White Blood Cell (WBC) Count 9.2 thou/uL (4.8-10.8)
[2020-02-16] MEDS ORDERED: Ondansetron PF 4 MG/2 ML Vial ONE (12:24)
[2020-02-16 12:34] LABS: ALT (SGPT) 11 U/L (8-55); AST (SGOT) 19 U/L (5-34); Albumin 3.8 g/dL (3.5-5.0); Alkaline Phosphatase 60 U/L (40-110); Anion Gap 12 mmol/L (10-20); BUN (Urea Nitrogen) 13 mg/dL (8.4-25.7); Bilirubin, Total 0.9 mg/dL (0.2-1.2); CK (CPK) 210 U/L (30-200); Calc. Creatinine Clearance 0 mL/min (70-130); Calcium 8.9 mg/dL (7.8-10.44); Carbon Dioxide 22 mmol/L (22-29); Chloride 105 mmol/L (98-107); Estimated GFR-MDRD 26; Globulin 2.9 g/dL (2.4-3.5); Glucose 132 mg/dL (70-105); Potassium 3.5 mmol/L (3.5-5.1); Protein, Total 6.7 g/dL (6.0-8.3); Sodium 135 mmol/L (136-145)
[2020-02-16 12:46] LABS: MDiff Complete? YES; Mean Platelet Volume 10.8 fL (7.4-10.4); Platelet Count 40 thou/uL (130-400); Platelet Morphology Comment Appears Decreased; Polychromasia SLIGHT = 2-3 cells (100X) (0-2/hpf)
[2020-02-16 12:56] LABS: CKMB 2.1 ng/mL (0-6.6)
--- NOTE | 2020-02-16 13:35 | PDOC.FPRHP ---
- History of Present Illness Chief Complaint: Syncope History of Present Illness: 59yo male with pmh of ESRD on HD TTHSat presents after syncopal episode. Witness was able to provide history. Pt fell down and staff checked his pulse and stated he did not have one. No chest compressions. Reports BVM on scene. Patient remembers them rolling him to his side. Started to wake up after about a minute. Took awhile for him to come back to were he was aware. No hx of this. No hx of seizures, bowel/bladder continence. Reports nausea after episode.Reports constant 6-7/10 bilateral groin pain that wasn't present before episode. Does make urine. Otherwise he felt well this am. Denies fever, difficulty breathing, chest pain. PCP: Incarcerated since 01/25/20. Dr Iglesias [facility] ED Course: Zofran, 250mL NS, nitro, ASA - Allergies/Adverse Reactions Allergies Allergy/AdvReac Type Severity Reaction Status Date / Time tramadol Allergy itching Verified 04/21/19 19:56 - Home Medications Medication Instructions Recorded Confirmed Type Aspirin [Ecotrin Regular Strength] 325 mg PO DAILY 02/06/15 04/21/19 History Calcium Carbonate/Vitamin D3 1 tablet PO DAILY 02/06/15 04/21/19 History [Calcium 500 + D] Carvedilol 25 mg PO BID 02/06/15 04/21/19 History Furosemide 40 mg PO DAILY 02/06/15 04/21/19 History Iron 18 mg PO HS 02/06/15 04/21/19 History Rippey-3 Fatty Acids [Fish Oil] 300 mg PO DAILY 02/06/15 04/21/19 History Simvastatin 40 mg PO HS 02/06/15 04/21/19 History Mv-Mins/Folic/Lycopene/Ginkgo [One 1 tab PO DAILY 02/07/15 04/21/19 History Daily Men's 50+] Terazosin HCl 5 mg PO HS #0 02/09/15 04/21/19 Rx Insulin Glargine,Hum.Rec.Anlog 10 units SQ HS 12/14/18 04/21/19 History [Lantus] HumaLOG [HumaLOG Vial] 0 unit SC TID-WM PRN 04/21/19 04/21/19 History hydrALAZINE HCl 100 mg PO TID 04/21/19 04/21/19 History NIFEdipine [Procardia XL] 60 mg PO DAILY #30 tab 04/23/19 Rx cloNIDine [Catapres] 0.2 mg PO TID #90 tab 04/23/19 Rx - History PMHx: CAD s/p stent 09/2019 at [facility], Insulin dependent DM, HTN, HLD, Gout, BPH, Iron def anemia, ESRD on HD since stent placement 09/2019. Dr Monroy, image consultant. PSHx: Cataracts, stent placement. FHx: CAD- mother at 74. DM. Social: Incarcerated. Former tobacco use, smoked 20yrs 1/3ppd. Prior alcohol use disorder. Denies current alcohol or drug use. - Review of Systems General: denies: fever/chills, weight/appetite/sleep changes Eyes: denies: eye pain, vision changes ENT: denies: nasal congestion, rhinorrhea Respiratory: denies: cough, congestion, shortness of breath Cardiovascular: denies: chest pain, palpitation Gastrointestinal: reports: nausea. denies: vomiting, diarrhea Genitourinary: denies: dysuria Skin: denies: rashes, lesions Musculoskeletal: reports: pain, tenderness Neurological: reports: syncope. denies: numbness - Vital signs BP: 140/75 HR: 80 RR: 12 Tmax: 97.6 Pox: 100% on RA Wt: 100 kg - Physical Exam Constitutional: NAD, awake, alert and oriented, well developed HEENT: normocephalic and atraumatic, conjunctiva clear, grossly normal hearing Neck: supple Heart: RRR, no murmurs/rubs/gallops Lungs: CTAB, no respiratory distress Abdomen: soft, non-tender, bowel sounds present Musculoskeletal: normal structure, normal tone Neurological: no focal deficit, CN II-XII intact, normal sensation, DTRs 2+ Skin: no rash/lesions, good turgor Heme/Lymphatic: no unusual bruising or bleeding FMR H&P: Results - Labs Result Diagrams: 02/16/20 11:47 02/16/20 11:47 Lab results: WBC 9.2 thou/uL (4.8-10.8) 02/16/20 11:47 Hgb 10.4 g/dL (14.0-18.0) L 02/16/20 11:47 Hct 30.5 % (42.0-52.0) L 02/16/20 11:47 MCV 91.6 fL (78.0-98.0) 02/16/20 11:47 Plt Count 40 thou/uL (130-400) L 02/16/20 11:47 Neutrophils % 72.4 % (42.0-75.0) 02/16/20 11:47 Sodium 135 mmol/L (136-145) L 02/16/20 11:47 Potassium 3.5 mmol/L (3.5-5.1) 02/16/20 11:47 Chloride 105 mmol/L (98-107) 02/16/20 11:47 Carbon Dioxide 22 mmol/L (22-29) 02/16/20 11:47 BUN 13 mg/dL (8.4-25.7) 02/16/20 11:47 Creatinine 2.98 mg/dL (0.7-1.3) H 02/16/20 11:47 Glucose 132 mg/dL (70-105) H 02/16/20 11:47 Calcium 8.9 mg/dL (7.8-10.44) 02/16/20 11:47 Total Bilirubin 0.9 mg/dL (0.2-1.2) 02/16/20 11:47 AST 19 U/L (5-34) 02/16/20 11:47 ALT 11 U/L (8-55) 02/16/20 11:47 Alkaline Phosphatase 60 U/L (40-110) 02/16/20 11:47 Creatine Kinase 210 U/L (30-200) H 02/16/20 11:47 CK-MB (CK-2) 2.1 ng/mL (0-6.6) 02/16/20 11:47 Serum Total Protein 6.7 g/dL (6.0-8.3) 02/16/20 11:47 Albumin 3.8 g/dL (3.5-5.0) 02/16/20 11:47 - EKG Interpretation EKG: PVCs, rate 64, QTC 484 FMR H&P: A/P - Plan 59yo male with pmh of IDDM, HTN, ESRD on HD presents after syncopal episode Syncope - Trop 0.045, will continue to trend - EKG with PVCs, no ST changes, no chest pain - CK elevated - Ordered Echo, orthostatics for further evaluation - Admit to tele obs ESRD on HD TThSat - Received today, will consult Nephro if requires HD during hospitalization IDDM2 - Continue home meds - CC diet, SSI, hypoglycemic protocol. ACHS accuchecks Normocytic anemia - likely 2/2 chronic disease HTN - Continue home meds HLD - Continue home meds CAD s/p stent Diet: CC DVT ppx: Heparin Code Status: Full PCP: Harris @ [facility] Dispo: admit to tele for observations. Expected stay <48 hours Addendum - Attending - Attending Attestation Date/Time: 02/16/20 2176 I personally evaluated the patient and discussed the management with Dr. Osman I agree with the History, Examination, Assessment and Plan documented above with any addition or exceptions noted below - 59yo male with h/o ESRD, DM2, HTN , HLD presents after syncopal episode. Witness was able to provide history. Pt fell down and staff checked his pulse and stated he did not have one. No chest compressions. Reports BVM on scene. Patient remembers them rolling him to his side. Started to wake up after about a minute. Took awhile for him to come back to were he was aware. No prior history of this. No hx of seizures, bowel/ bladder continence. Reports nausea after episode. Does make urine. Otherwise he felt well this am. Denies fever, difficulty breathing, chest pain. Per history, BP at end of dilaysis at time of event was 70/40. PMH/PSH/Meds/SH reviewed and agree with residnet's documentation. Afebrile VSS. Exam repeated by me and agree with resident's findings. Labs: H/H=10.4/30.5, Plt=40, Fo=644, K=3.5, Cl= 105, CO2=22, BUN/Cr=13/2.98, Lspr=575, Trop=0.045. A/P: 1) Syncope- most likely secondary to hypotension from dialysis - Continue to monitor. Will check echo and orthostatics. 2) ESRD- continue HD as per schedule, 3) DM2- monitor BG, 4) HTN- monitor and may need to adjust home meds.
[2020-02-16] MEDS ORDERED: Nitroglycerin 2% Ointment 1 INCH/1 GM Packet ONE (13:51)
[2020-02-16] MEDS ORDERED: Aspirin Chewable 81 MG TAB ONE (13:51)
[2020-02-16] MEDS ORDERED: Acetaminophen 325 MG TAB PO PRN (15:25)
[2020-02-16] MEDS ORDERED: Ondansetron ODT 4 MG TAB PO PRN (15:25)
[2020-02-16] MEDS ORDERED: Ondansetron PF 4 MG/2 ML Vial IVP PRN (15:25)
[2020-02-16 15:31] VITALS: BMI 26.4
[2020-02-16] MEDS ORDERED: Dextrose 50% Abboject 50 ML SYRINGE SLOW IVP PRN (16:08)
[2020-02-16] MEDS ORDERED: Dextrose 5% in Water 1,000 ML IV PRN (16:08)
[2020-02-16] MEDS ORDERED: HumaLOG 300 UNITS/3 ML VIAL SC PRN (16:08)
[2020-02-16 16:35] LABS: Magnesium 1.9 mg/dL (1.6-2.6); Phosphorus 3.9 mg/dL (2.3-4.7)
[2020-02-16 16:38] LABS: Troponin I 0.034 ng/mL (< 0.028)
[2020-02-16 19:32] LABS: Troponin I 0.042 ng/mL (< 0.028)
[2020-02-16] MEDS: Carvedilol 25 MG TAB PO SCH (20:08)
[2020-02-16] MEDS: Atorvastatin Calcium 20 MG TAB PO SCH (20:08)
[2020-02-16] MEDS: hydrALAZINE 25 MG TAB PO SCH (20:09)
[2020-02-16] MEDS: Insulin Glargine 10 UNITS in Pre-Filled Syringe 1 EACH SC SCH (20:13)
[2020-02-16] MEDS ORDERED: Heparin 5,000 UNITS/ML VIAL SC SCH (21:00)
[2020-02-17 05:21] LABS: Cardiac Risk 2.4 (Less than 4.5)
--- NOTE | 2020-02-17 06:38 | PDOC.FM ---
- Subjective Subjective: When asking about the event yesterday, he said he felt like something was wrong before the event. He had 45 minutes left of his dialysis when the event occurred. He said he started dialysis back in September of 2019 and has not had any symptoms like this before. He also had a stent placed around that time last year. - Objective MAR Reviewed: Yes Vital Signs & Weight: Vital Signs (12 hours) Temp Pulse Resp BP BP BP BP 02/17/20 03:50 99.0 F 62 15 138/73 02/16/20 23:16 98.3 F 61 16 163/77 H 02/16/20 20:09 61 02/16/20 20:05 61 155/86 H 132/79 143/75 H 02/16/20 19:24 98.4 F 62 16 137/74 02/16/20 18:43 Pulse Ox 02/17/20 03:50 96 02/16/20 23:16 95 02/16/20 20:09 02/16/20 20:05 02/16/20 19:24 96 02/16/20 18:43 98 Weight Weight 100.97 kg I&O: 02/15/20 02/16/20 02/17/20 06:59 06:59 06:59 Intake Total 714 Output Total 300 Balance 414 Result Diagrams: 02/17/20 08:37 02/17/20 08:37 EKG Reviewed by me: Yes (4 beats of ventricular tachycardia, Bigeminal and biphasic P wave) Phys Exam - Physical Examination Constitutional: NAD HEENT: PERRLA, moist MMs, oral pharynx no lesions Neck: no nodes, supple Respiratory: no wheezing, no rales, no rhonchi, clear to auscultation bilateral Cardiovascular: RRR, no significant murmur Gastrointestinal: soft, non-tender, positive bowel sounds Musculoskeletal: no edema, pulses present Neurological: moves all 4 limbs Lymphatic: no nodes Psychiatric: normal affect Skin: no rash, normal turgor Dx/Plan (1) Syncope Code(s): R55 - SYNCOPE AND COLLAPSE Status: Acute (2) Elevated troponin Code(s): R79.89 - OTHER SPECIFIED ABNORMAL FINDINGS OF BLOOD CHEMISTRY Status : Acute (3) Renal insufficiency Status: Acute (4) CAD (coronary artery disease) Code(s): I25.10 - ATHSCL HEART DISEASE OF [place] CORONARY ARTERY W/O ANG PCTRS Status: Chronic (5) Chronic diastolic heart failure secondary to coronary artery disease Code(s): I50.32 - CHRONIC DIASTOLIC (CONGESTIVE) HEART FAILURE; I25.10 - ATHSCL HEART DISEASE OF [place] CORONARY ARTERY W/O ANG PCTRS Status: Chronic (6) DM2 (diabetes mellitus, type 2) Status: Chronic - Plan Plan: 59yo male with pmh of IDDM, HTN, ESRD on HD presents after syncopal episode 1. Syncope Trop 0.045 > 0.034 > 0.042- His baseline * EKG with PVCs, no ST changes, no chest pain * CK elevated * ECHO: pending * Orthostatics were negative 2. ESRD on HD TThSat Received 02/15, will consult Nephro if requires HD during hospitalization 3. IDDM2 Continue home meds * CC diet * SSI, hypoglycemic protocol. * ACHS accuchecks 4. Normocytic anemia Likely 2/2 chronic disease 5. HTN Continue home meds 6. HLD Continue home meds 7. CAD s/p stent Diet: CC DVT ppx: Heparin Code Status: Full PCP: Harris @ [facility] Dispo: Tele obs for syncope, LOS <48 hours. Will await results of ECHO. Addendum - Attending - Attending Attestation Date/Time: 02/17/20 1025 I personally evaluated the patient and discussed the management with Dr. Harding I agree with the History, Examination, Assessment and Plan documented above with any addition or exceptions noted below. TTE and carotid dopplers today. Dispo pending results. Will also contact outpt lead web application developer to discuss case.
[2020-02-17] MEDS ORDERED: Clopidogrel Bisulfate 75 MG TAB PO SCH (09:00)
[2020-02-17 09:04] LABS: #Eosinphils 0.2 thou/uL (0.0-0.7); #Lymphocytes 2.4 thou/uL (1.20-3.40); #Monocytes 0.7 thou/uL (0.11-0.59); #Neutrophils 3.4 thou/uL (1.40-6.50); %Basophils 0.1 % (0.0-1.0); %Eosinophils 3.3 % (0.0-10.0); %Lymphocytes 35.7 % (21.0-51.0); %Monocytes 9.8 % (0.0-10.0); %Neutrophils 51.1 % (42.0-75.0); Hemoglobin 10.1 g/dL (14.0-18.0); Mean Corpuscular HGB CONC 34.4 g/dL (32.0-36.0); Mean Corpuscular Hemoglobin 31.6 pg (27.0-31.0); Mean Platelet Volume 10.4 fL (7.4-10.4); Platelet Count 58 thou/uL (130-400); RBC Distribution Width 12.5 % (11.5-14.5); Red Blood Cell (RBC) Count 3.19 mill/uL (4.70-6.10); White Blood Cell (WBC) Count 6.6 thou/uL (4.8-10.8)
[2020-02-17] MEDS: Aspirin 325 mg Enteric Coated Tablet PO SCH (09:15)
[2020-02-17] MEDS: Carvedilol 25 MG TAB PO SCH ×2 (09:16→22:12)
[2020-02-17] MEDS: hydrALAZINE 25 MG TAB PO SCH ×3 (09:16→22:12)
[2020-02-17] MEDS: Furosemide 40 MG TAB PO SCH (09:16)
[2020-02-17 09:34] LABS: ALT (SGPT) 8 U/L (8-55); AST (SGOT) 19 U/L (5-34); Albumin 3.4 g/dL (3.5-5.0); Alkaline Phosphatase 56 U/L (40-110); Anion Gap 13 mmol/L (10-20); BUN (Urea Nitrogen) 27 mg/dL (8.4-25.7); Bilirubin, Total 0.3 mg/dL (0.2-1.2); Calc. Creatinine Clearance 23 mL/min (70-130); Calcium 8.6 mg/dL (7.8-10.44); Carbon Dioxide 21 mmol/L (22-29); Chloride 105 mmol/L (98-107); Estimated GFR-MDRD 15; Globulin 2.9 g/dL (2.4-3.5); Glucose 107 mg/dL (70-105); Potassium 4.3 mmol/L (3.5-5.1); Protein, Total 6.3 g/dL (6.0-8.3); Sodium 135 mmol/L (136-145)
--- NOTE | 2020-02-17 10:25 | ULT ---
BILATERAL CAROTID DUPLEX ULTRASOUND: HISTORY: Syncope TECHNIQUE: Grayscale, color-flow and spectral Doppler ultrasound imaging of the extracranial carotid artery syst ems was performed bilaterally. FINDINGS: There is plaque formation on both sides. The peak systolic velocity in the right ICA measures 60 cm/s with an end-diastolic velocity of 15 cm/ s and a systolic ratio of 0.85. The peak systolic velocity in the left ICA measures 68 cm/s with an end-diastolic velocity of 18 cm/s and a systolic ratio of 0.73. Flow in both vertebral arteries remains antegrade. IMPRESSION: No evidence of hemodynamically significant stenosis.
[2020-02-17 12:04] LABS: Hemoglobin 10.1 g/dL (14.0-18.0); Mean Corpuscular HGB CONC 33.4 g/dL (32.0-36.0); Mean Corpuscular Hemoglobin 30.6 pg (27.0-31.0); Mean Corpuscular Volume 91.7 fL (78.0-98.0); Mean Platelet Volume 9.9 fL (7.4-10.4); Platelet Count 63 thou/uL (130-400); RBC Distribution Width 12.5 % (11.5-14.5); Red Blood Cell (RBC) Count 3.28 mill/uL (4.70-6.10); White Blood Cell (WBC) Count 7.4 thou/uL (4.8-10.8)
[2020-02-17 12:11] LABS: Eosinophils 3 % (0-10); Lymphocytes 28 % (21-51); MDiff Complete? YES; Monocytes 10 % (0-10); Neutrophil 59 % (42-75); Platelet Morphology Comment Appears Decreased; RBC Morphology Normal
[2020-02-17] MEDS: Atorvastatin Calcium 20 MG TAB PO SCH (22:13)
[2020-02-17] MEDS: Insulin Glargine 10 UNITS in Pre-Filled Syringe 1 EACH SC SCH (22:15)
--- NOTE | 2020-02-18 06:53 | PDOC.FM ---
- Subjective Subjective: He has no complaints this morning. We talked about his ECHO and he expressed understanding. Eating breakfast well. Today he is supposed to get dialysis. - Objective MAR Reviewed: Yes Vital Signs & Weight: Vital Signs (12 hours) Temp Pulse Resp BP BP BP BP 02/18/20 03:50 98.5 F 52 L 17 168/78 H 02/17/20 23:24 98.2 F 61 16 179/94 H 02/17/20 22:12 71 172/78 H 02/17/20 19:06 99.5 F 71 16 150/64 H 144/64 H BP Pulse Ox 02/18/20 03:50 97 02/17/20 23:24 98 02/17/20 22:12 02/17/20 19:06 172/78 H 97 Weight Weight 101.015 kg I&O: 02/16/20 02/17/20 02/18/20 06:59 06:59 06:59 Intake Total 714 960 Output Total 300 1120 Balance 414 -160 Result Diagrams: 02/17/20 11:15 02/17/20 08:37 EKG Reviewed by me: Yes (PVCs, sinus rhythm 50-60s) Phys Exam - Physical Examination Constitutional: NAD HEENT: PERRLA, moist MMs, sclera anicteric, oral pharynx no lesions Neck: no nodes, supple Respiratory: no wheezing, no rales, no rhonchi, clear to auscultation bilateral Cardiovascular: RRR Gastrointestinal: soft, non-tender, positive bowel sounds Musculoskeletal: no edema, pulses present Neurological: moves all 4 limbs Lymphatic: no nodes Psychiatric: normal affect Skin: no rash, normal turgor Dx/Plan (1) Syncope Code(s): R55 - SYNCOPE AND COLLAPSE Status: Acute (2) Elevated troponin Code(s): R79.89 - OTHER SPECIFIED ABNORMAL FINDINGS OF BLOOD CHEMISTRY Status : Acute (3) Renal insufficiency Status: Acute (4) CAD (coronary artery disease) Code(s): I25.10 - ATHSCL HEART DISEASE OF [place] CORONARY ARTERY W/O ANG PCTRS Status: Chronic (5) Chronic diastolic heart failure secondary to coronary artery disease Code(s): I50.32 - CHRONIC DIASTOLIC (CONGESTIVE) HEART FAILURE; I25.10 - ATHSCL HEART DISEASE OF [place] CORONARY ARTERY W/O ANG PCTRS Status: Chronic (6) DM2 (diabetes mellitus, type 2) Status: Chronic - Plan Plan: 59yo male with pmh of IDDM, HTN, ESRD on HD presents after syncopal episode 1. Syncope Trop 0.045 > 0.034 > 0.042- His baseline EKG with PVCs, no ST changes, no chest pain CK elevated ECHO: EF 55-60%, Moderate LVH concentric, Mild LA dilation, Moderate MR, Mild -Mod TR Orthostatics were negative 2. ESRD on HD TThSat Received 02/15 * Consulted nephrology this morning, Dr. Echols, for dialysis for patient. 3. IDDM2 Continue home meds CC diet SSI, hypoglycemic protocol. ACHS accuchecks 4. Normocytic anemia Likely 2/2 chronic disease 5. HTN Continue home meds 6. HLD Continue home meds 7. CAD s/p stent 8. Thrombocytopenia 40s-63 * Plts were 120s prior to initiation of dialysis in September * Likely related to heparin in dialysis * HIT Ab ordered. Diet: CC DVT ppx: Heparin Code Status: Full PCP: Harris @ [facility] Dispo: Tele obs for syncope, LOS <48 hours. Will discharge today after dialysis. Addendum - Attending - Attending Attestation Date/Time: 02/18/20 1042 I personally evaluated the patient and discussed the management with Dr. Harding I agree with the History, Examination, Assessment and Plan documented above with any addition or exceptions noted below. TTE normal. HIT eval pending. Can D/C after HD today and will f/u w/ outpt nepho with results of HIT labs.
[2020-02-18] MEDS ORDERED: Ferrous Sulfate 325 MG TAB PO SCH (08:00)
[2020-02-18] MEDS ORDERED: Heparin 10,000 UNITS/ 10 ML VIAL ONE (08:37)
[2020-02-18] MEDS ORDERED: Fish Oil 1,000 MG CAP PO SCH (09:00)
[2020-02-18] MEDS ORDERED: Isosorbide Dinitrate 20 MG TAB PO SCH (09:00)
[2020-02-18] MEDS ORDERED: Clopidogrel Bisulfate 75 MG TAB PO SCH (09:00)
[2020-02-18] MEDS ORDERED: Calcium Carbonate 600 MG + Vit D TAB PO SCH (09:00)
[2020-02-18] MEDS: Aspirin 325 mg Enteric Coated Tablet PO SCH (11:14)
[2020-02-18] MEDS: Carvedilol 25 MG TAB PO SCH (11:14)
[2020-02-18] MEDS: hydrALAZINE 25 MG TAB PO SCH ×2 (11:14→15:54)
[2020-02-18] MEDS: Furosemide 40 MG TAB PO SCH (11:15)
[2020-02-18 15:50] VITALS: BP 151/66; TEMP 98
--- NOTE | 2020-02-18 20:38 | CON ---
DATE OF CONSULTATION: CONSULTING PHYSICIAN: Kinza Berg MD REQUESTING PHYSICIAN: [facility]. REASON FOR CONSULTATION: Need for maintenance dialysis. IMPRESSION: 1. End-stage renal disease, on Thursday, , and Thursday schedule. 2. Syncopal episode, query cause. PLAN: The patient to be dialyzed today in accordance with the schedule with ultrafiltration as tolerated by hemodynamics. HISTORY OF PRESENT ILLNESS: History is that of 59-year-old incarcerated gentleman with hemodialysis dependent end-stage renal disease on Thursday, , and Thursday schedule need for maintenance hemodialysis necessitated this Renal consultation. PAST MEDICAL HISTORY: Significant for end-stage renal disease, coronary artery disease status post stent, insulin-dependent diabetes mellitus, hypertension, , gout, BPH, iron deficiency anemia. MEDICATIONS: Reviewed and as documented on AppSame. SOCIAL HISTORY: The patient is incarcerated with remote tobacco use. No alcohol. No illicit drug use. REVIEW OF SYSTEMS: As documented in the body of the history. All the other systems were reviewed and found not to be significantly related to present illness. PHYSICAL EXAMINATION: GENERAL: The patient was found not to be in any obvious distress. VITAL SIGNS: Noted with following vital signs; afebrile, temperature 98, pulse 64, respiratory rate of 20 with a blood pressure 151/66. HEENT: Unremarkable. CARDIOVASCULAR SYSTEM: First and second heart sounds were heard. RESPIRATORY SYSTEM: Clear to auscultation. DIGESTIVE SYSTEM: Revealed a benign abdomen with positive bowel sounds. EXTREMITIES: No peripheral edema. SKIN: No new gross rash. LYMPHATICS: No peripheral lymphadenopathy. SUMMARY: A 59-year-old gentleman, presented status post syncopal episode, need for maintenance hemodialysis. Thank you for this consultation. We will follow with you. Job ID: [id number]
[2020-02-18] MEDS ORDERED: Insulin Glargine 10 UNITS in Pre-Filled Syringe 1 EACH SC SCH (21:00)
[2020-02-18] MEDS ORDERED: Terazosin HCl 5 MG CAP PO SCH (21:00)
[2020-02-18] MEDS ORDERED: Atorvastatin Calcium 20 MG TAB PO SCH (21:00)
--- NOTE | 2020-02-20 11:51 | DIS ---
DATE OF ADMISSION: 02/16/2020 DATE OF DISCHARGE: 02/18/2020 RESIDENT: Peter Harding MD ADMITTING ATTENDING: Hansa Villeda MD DISCHARGE ATTENDING: Vasquez Storey MD. CONSULTS: Nephrology, Dr. Echols, for hemodialysis. PROCEDURES: * Chest x-ray on 02/15, showed no acute cardiopulmonary process. * Carotid Doppler on 02/16, showed no evidence of hemodynamically significant stenosis. * Echo on 02/16, showed moderate concentric left ventricular hypertrophy. EF is 55% to 60%. Left atrial dilation mild, moderate mitral regurgitation, mild aortic regurgitation, [id number] tricuspid regurgitation. DISCHARGE MEDICATIONS: 1. Vitamin D3 1250 mg/400 units one tablet daily. 2. Carvedilol 25 mg p.o. b.i.d. 3. Plavix 75 mg daily. 4. Lasix 40 mg daily. 5. Humalog 0 units subcutaneously t.i.d. with meals, sliding scale. 6. Hydralazine 100 mg p.o. t.i.d. 7. Lantus 10 units subcu at bedtime. 8. Iron 325 mg daily. 9. Isosorbide dinitrate 30 mg daily. 10. [place]-3 fatty acids 2000 mg daily. 11. Pravastatin 80 mg at bedtime. 12. Terazosin 10 mg p.o. at bedtime. Discontinued medications; 1. Tylenol. 2. Aspirin. 3. D5W. 4. Glucagon. PRIMARY DIAGNOSES: 1. Syncope 2. End-stage renal disease, on hemodialysis, Thursday, , Thursday; 3. Diabetes type 2 4. Normocytic anemia 5. Thrombocytopenia. SECONDARY DIAGNOSIS: 1. Hypertension 2. Hyperlipidemia 3. Coronary artery disease, status post stent HISTORY OF PRESENT ILLNESS AND HOSPITAL COURSE: The patient is a 59-year-old male with past medical history of end-stage renal disease, on hemodialysis Thursday, , Thursday, who presents after syncopal episode. Witness was able to provide history. The patient fell down, and staff checked his pulse and stated he did not have one. No chest compressions. Reports BVM on scene. The patient remembers them rolling him to his side, started to wake up after about a minute. Took a while for him to come back to where he was aware. There is no history of seizures, bowel or bladder incontinence. Reports nausea after episode. He reports constant 6 to 7/10 bilateral groin pain that was not present before episode. Does make urine. Otherwise, he felt well this morning. Denies fever, difficulty breathing, or chest pain. In the ED, he was given Zofran, 250 mL normal saline, nitroglycerin, and aspirin. Before discharge, groin pain resolved. 1. Syncope. Troponins were 0.045, 0.034, 0.042, which is his baseline. * EKG showed PVCs. No ST changes. No chest pain. * CK was slightly elevated. * Carotid Dopplers as noted above. * ECHO as noted above. * Most likely secondary to drop in blood pressure during dialysis. 2. End-stage renal disease, on hemodialysis Thursday, , Thursday. Received dialysis before discharge on 02/17. 3. Diabetes type 2. Continue home medications. * Consistent carb diet. * Sliding scale insulin. * Hypoglycemic protocol, a.c. and at bedtime Accu-Cheks. 4. Thrombocytopenia. Platelets were in the 40s to 60s. Platelets prior to initiation of dialysis in September were 120s, possibly related to heparin and dialysis. * Peripheral smear shows thrombocytopenia * HIT antibody: 0.457, which is elevated but less than 0.6 suggesting it is not related to heparin. * Called npehrologist with results, Dr. Triana. 5. Normocytic anemia likely secondary to chronic disease. Will need oupatient follow-up. 6. Hypertension. Continue home medications. 6. Hyperlipidemia. Continue home medications. 7. Coronary artery disease, status post stents. DISPOSITION: Stable. DISCHARGE INSTRUCTIONS: 1. Location: [facility]. 2. Activity: As tolerated. 3. Diet: Diabetic and renal. 4. Followup with Dr. Iglesias in [address] Triana within 2 to 3 weeks. Job ID: [id number] [facility]
[2020-02-21 14:37] LABS: Heparin-Induced Ab (HITA) 0.457 OD (0.000-0.400)
--- NOTE | 2020-02-24 13:52 | EKG ---
Test Reason : ER Blood Pressure : / mmHG Vent. Rate : 064 BPM Atrial Rate : 064 BPM P-R Int : 184 ms QRS Dur : 090 ms QT Int : 470 ms P-R-T Axes : 074 -23 088 degrees QTc Int : 484 ms Sinus rhythm with occasional Premature ventricular complexes and Premature atrial complexes Nonspecific ST and T wave abnormality Prolonged QT No STEMI Abnormal ECG Confirmed by KOKI Ngo, YOANA ([id number]), graphics editor RANDY WAGNER ([id number]) on 02/24/2020 1:51:31 PM Referred By: Confirmed By:YOANA TELLES M.D.
== END 2020-02-18 17:40 ==
LOC: ERS 11:24 → 2SW 13:30
PROVIDERS: ADMIT Family Medicine; ATTEND Family Medicine
DX: R55 Syncope and collapse (principal); I12.0 Hypertensive chronic kidney disease with stage 5 chronic kidney disease or end stage renal disease; N18.6 End stage renal disease; E78.5 Hyperlipidemia, unspecified; I25.10 Atherosclerotic heart disease of native coronary artery without angina pectoris; F17.210 Nicotine dependence, cigarettes, uncomplicated; M10.9 Gout, unspecified; N40.0 Benign prostatic hyperplasia without lower urinary tract symptoms; D64.9 Anemia, unspecified; D69.6 Thrombocytopenia, unspecified; Z79.4 Long term (current) use of insulin; Z79.899 Other long term (current) drug therapy; Z99.2 Dependence on renal dialysis; Z88.2 Allergy status to sulfonamides; Z88.5 Allergy status to narcotic agent; Z88.6 Allergy status to analgesic agent; Z95.5 Presence of coronary angioplasty implant and graft
CPT/HCPCS: 36415; 36416; 71045; 80053; 80061; 82550; 82553; 83735; 84100; 84443; 84484; 85025; 85060; 90935; 93005; 93306; 93880; 94760; 96361; 96374; G0257; G0378; J1644; J1815; J2405

== ENCOUNTER 2020-04-15 15:56 | Inpatient (IN) | payer BC, OTHER ==
[2020-04-15 16:54] LABS: #Basophils 0.1 thou/uL (0.0-0.2); #Eosinphils 0.1 thou/uL (0.0-0.7); #Lymphocytes 1.9 thou/uL (1.20-3.40); #Monocytes 0.9 thou/uL (0.11-0.59); #Neutrophils 4.2 thou/uL (1.40-6.50); %Eosinophils 1.8 % (0.0-10.0); %Lymphocytes 26.3 % (21.0-51.0); %Monocytes 12.4 % (0.0-10.0); %Neutrophils 58.5 % (42.0-75.0); Hemoglobin 12.9 g/dL (14.0-18.0); Mean Corpuscular HGB CONC 32.7 g/dL (32.0-36.0); Mean Corpuscular Hemoglobin 31.7 pg (27.0-31.0); Mean Corpuscular Volume 96.8 fL (78.0-98.0); Mean Platelet Volume 10.4 fL (7.4-10.4); Platelet Count 87 thou/uL (130-400); RBC Distribution Width 12.7 % (11.5-14.5); Red Blood Cell (RBC) Count 4.07 mill/uL (4.70-6.10); White Blood Cell (WBC) Count 7.1 thou/uL (4.8-10.8)
[2020-04-15 17:05] LABS: ALT (SGPT) 9 U/L (8-55); AST (SGOT) 13 U/L (5-34); Albumin 3.7 g/dL (3.5-5.0); Alkaline Phosphatase 64 U/L (40-110); Anion Gap 14 mmol/L (10-20); BUN (Urea Nitrogen) 27 mg/dL (8.4-25.7); Bilirubin, Total 0.4 mg/dL (0.2-1.2); Calc. Creatinine Clearance 0 mL/min (70-130); Calcium 8.6 mg/dL (7.8-10.44); Carbon Dioxide 24 mmol/L (22-29); Chloride 105 mmol/L (98-107); Estimated GFR-MDRD 15; Globulin 3.1 g/dL (2.4-3.5); Glucose 195 mg/dL (70-105); Potassium 4.2 mmol/L (3.5-5.1); Protein, Total 6.8 g/dL (6.0-8.3); Sodium 139 mmol/L (136-145)
[2020-04-15 17:25] LABS: CKMB 1.6 ng/mL (0-6.6)
--- NOTE | 2020-04-15 17:37 | RAD ---
CHEST ONE VIEW: History: Bradycardia Comparison: 02-16-2020 FINDINGS: Heart size is within normal limits. Right sided central line. No confluent pneumonia, overt edema, or pleural effusions. IMPRESSION: No significant acute intrathoracic disease. POS: [facility]
[2020-04-15] MEDS ORDERED: HumaLOG 300 UNITS/3 ML VIAL SC PRN (20:16)
[2020-04-15] MEDS ORDERED: Acetaminophen 325 MG TAB PO PRN (20:16)
[2020-04-15] MEDS ORDERED: Dextrose 5% in Water 1,000 ML IV PRN (20:16)
[2020-04-15] MEDS ORDERED: Dextrose 50% Abboject 50 ML SYRINGE SLOW IVP PRN (20:16)
[2020-04-15] MEDS ORDERED: hydrALAZINE 20 MG/ML VIAL SLOW IVP PRN (20:16)
[2020-04-15 20:34] LABS: Troponin I 0.041 ng/mL (< 0.028)
[2020-04-15 21:21] VITALS: BMI 26.1
[2020-04-15] MEDS: Famotidine 20 MG TAB PO SCH (22:07)
[2020-04-15] MEDS: Atorvastatin Calcium 20 MG TAB PO SCH (22:07)
[2020-04-15] MEDS: Terazosin HCl 5 MG CAP PO SCH (22:07)
[2020-04-15] MEDS: hydrALAZINE 25 MG TAB PO SCH (22:07)
[2020-04-15 23:26] LABS: Troponin I 0.036 ng/mL (< 0.028)
--- NOTE | 2020-04-16 01:05 | HP ---
The patient does not have a primary care physician. CHIEF COMPLAINT: Low heart rate. HISTORY OF PRESENT ILLNESS: Mr. Reyna is a 59-year-old gentleman, who is currently in the custody of the [employer]. He has a history of end-stage renal disease, on hemodialysis; also diabetes mellitus and hypertension. He was undergoing dialysis today and it was noted that his heart rate was down into the 30s. This has happened to him in the past he says, but the biomedical repair technician there preferred him to come to our hospital to have this evaluated. He says this problem started back in September of last year. He says that at that time he had to have stents placed and ever since having the heart condition with the stent placement, he has had periodic bouts of low heart rate. He says it usually happens when he is on dialysis, but it does not happen every time. His heart rate has been in the 30s before and during this time he has been asymptomatic. He says that he had spoken to a mentally impaired teacher about it in the past and they told him that it just needs observation. When it happened today, he says he was not having any symptoms. He denies having any chest pain or shortness of breath. He denies feeling dizzy or lightheaded. Otherwise, he says he basically does not have any symptoms. Since he has been in the emergency room, his heart rate has been in the 50s and 60s. REVIEW OF SYSTEMS: All systems were reviewed and are negative except for that mentioned in the history of present illness. PAST MEDICAL HISTORY: Significant for end-stage renal disease, on hemodialysis; diabetes mellitus type 2, hypertension, hyperlipidemia, gout, BPH, and coronary artery disease. PAST SURGICAL HISTORY: He has had cataract surgery, a stent placed in September and he says shortly after that he required dialysis and he says he does need an AV fistula. ALLERGIES: TO TRAMADOL. SOCIAL HISTORY: He is a former smoker. He quit in January. Prior to that, he smoked about a third of a pack a day for 25 to 30 years. He says that he used to drink alcohol. He says he was never a heavy drinker and he quit back in December and he is and has 6 children. FAMILY HISTORY: Significant for coronary artery disease. CURRENT MEDICATIONS: Include; 1. Lantus insulin 10 units subcu at bedtime. 2. Calcium plus vitamin D daily. 3. Carvedilol 25 mg p.o. twice a day. 4. Hydralazine 100 mg p.o. t.i.d. 5. Furosemide 40 mg daily. 6. Treece fatty acids daily. 7. Nifedipine extended release 60 mg daily. 8. Isosorbide mononitrate extended release 30 mg daily. 9. Plavix 75 mg daily. 10. Terazosin 10 mg daily. 11. Pravastatin 80 mg at bedtime. PHYSICAL EXAMINATION: GENERAL: He is alert and oriented. He appears to be in no acute distress. He is well developed and well nourished. VITAL SIGNS: Blood pressure was 177/97, heart rate 59, respiratory rate of 18; temperature, he is afebrile. HEENT: His pupils are equal, round, and reactive. Extraocular muscles are intact. His sclerae anicteric. Throat, there is no erythema. No exudates. NECK: No adenopathy. No bruits. LUNGS: Clear to auscultation. There is no wheezing. No rales. No rhonchi. CARDIOVASCULAR: Heart rate is bradycardic, is regular however. He did have a very soft, systolic murmur at the base. ABDOMEN: Soft. It is nontender, nondistended. Positive for bowel sounds. There is no rebound. No guarding. No organomegaly. EXTREMITIES: There is no clubbing or cyanosis. No edema. No calf tenderness. No joint effusions. NEUROLOGIC: His cranial nerves 2 through 12 are grossly intact. Muscle strength is 5/5 in both his upper and lower extremities. SKIN AND INTEGUMENT: No skin changes. No rash. LABORATORY RESULTS: White blood cell count 7.1, hemoglobin 12, hematocrit is 39.4, and platelet count is 87. Sodium 139, potassium 4.2, chloride is 105, CO2 is 24, BUN of 27, creatinine 4.73, and glucose is 195. Troponin is 0.041. On his EKG, it was sinus rhythm, the rate was in the 50s. He had some T-wave inversions in I and aVL. He appeared to have some intraventricular conduction delay by my reading and some nonspecific changes. He also had a chest x-ray and the heart size, upper limits of normal and the film appears to be slightly poorly penetrated. He may have some pleural thickening or very small pleural effusions, but otherwise normal chest x-ray, this is by my reading as well. ASSESSMENT: 1. This is a pleasant 59-year-old gentleman, who presents to the emergency room with bradycardia, which appears to be asymptomatic. However, his heart rate was fairly slow in the mid to upper 30s. For this reason, it was felt best to at least place him in observation and monitor him overnight on telemetry. We will consult Cardiology to get their opinion on whether or not he requires pacemaker. He has had a recent echocardiogram done back in January, in which his ejection fraction was normal. There appeared to be no significant wall motion abnormalities. Therefore, we will hold off on repeating any echo at this time and we will also trend his troponins. 2. Diabetes mellitus. We will reconcile and restart his home medications as well as a sliding scale. 3. Hypertension. His blood pressure is slightly elevated. We will go ahead and restart his home medications. However, we may cut back on the dose of the carvedilol given his bradycardia or even hold it altogether and replace this with either lisinopril or a higher dose of hydralazine. 4. Coronary artery disease. Again, we will trend his troponins and place him back on his home medications. Job ID: [id number]
[2020-04-16 04:10] LABS: Anion Gap 13 mmol/L (10-20); BUN (Urea Nitrogen) 31 mg/dL (8.4-25.7); Calc. Creatinine Clearance 23 mL/min (70-130); Calcium 8.8 mg/dL (7.8-10.44); Carbon Dioxide 26 mmol/L (22-29); Chloride 104 mmol/L (98-107); Estimated GFR-MDRD 15; Glucose 291 mg/dL (70-105); Potassium 4.1 mmol/L (3.5-5.1); Sodium 139 mmol/L (136-145)
[2020-04-16 04:15] LABS: #Basophils 0.1 thou/uL (0.0-0.2); #Eosinphils 0.1 thou/uL (0.0-0.7); #Lymphocytes 1.9 thou/uL (1.20-3.40); #Monocytes 0.7 thou/uL (0.11-0.59); %Eosinophils 2.2 % (0.0-10.0); %Lymphocytes 27.9 % (21.0-51.0); %Monocytes 10.7 % (0.0-10.0); %Neutrophils 58.2 % (42.0-75.0); Hemoglobin 12.4 g/dL (14.0-18.0); Mean Corpuscular HGB CONC 32.5 g/dL (32.0-36.0); Mean Corpuscular Hemoglobin 31.3 pg (27.0-31.0); Mean Corpuscular Volume 96.3 fL (78.0-98.0); Mean Platelet Volume 11.1 fL (7.4-10.4); Platelet Count 96 thou/uL (130-400); RBC Distribution Width 12.9 % (11.5-14.5); Red Blood Cell (RBC) Count 3.97 mill/uL (4.70-6.10); White Blood Cell (WBC) Count 6.8 thou/uL (4.8-10.8)
[2020-04-16] MEDS ORDERED: Carvedilol 6.25 MG TAB PO SCH ×2 (08:00→10:30)
[2020-04-16] MEDS: Isosorbide Dinitrate 20 MG TAB PO SCH (08:47)
[2020-04-16] MEDS: Clopidogrel Bisulfate 75 MG TAB PO SCH (08:47)
[2020-04-16] MEDS: hydrALAZINE 25 MG TAB PO SCH ×3 (08:48→19:28)
[2020-04-16] MEDS ORDERED: Enoxaparin Sodium 30 MG/0.3 ML SYRINGE SC SCH (09:00)
--- NOTE | 2020-04-16 12:33 | CON ---
DATE OF CONSULTATION: HISTORY OF PRESENT ILLNESS: Elliott Reyna is a 59-year-old black male with history of coronary artery disease, admitted from dialysis for bradycardia. In 01/2008, he underwent cardiac catheterization by Dr. Olivo for ejection fraction of 40% and shortness of breath. This revealed [id number] luminal irregularities of the LAD. There was a moderate-sized 2nd diagonal with 90% ostial stenosis. The circumflex had moderate luminal irregularities up to 50%. The ramus was totally occluded and filled retrograde from the left. The dominant right coronary artery had a long 70% to 90% segment in its midportion and 80% lesion in the midportion of the right posterior descending. It was elected to treat him medically. In 01/2015, he was evaluated at [facility] by Dr. Metzger. He was having chest discomfort and underwent Cardiolite testing, which revealed anterolateral and apical ischemia. It was recommended he undergo cardiac catheterization; however, he never returned for followup. He states that in 09/2019, he was having problems with exertional shortness of breath, but denied any significant chest discomfort. He underwent cardiac catheterization at [facility], and states that he had one stent placed. He is still on clopidogrel, and so I would imagine this was a drug-eluting stent. It also was known that after that cardiac catheterization that he would need dialysis due to his chronic kidney disease. He states that since he underwent stent placement and started on dialysis in 2018, he has not had any further significant shortness of breath. He was hospitalized here in 01/2020 after he fell to the ground. Apparently, no pulse was felt, but CPR was not started. Carotid Doppler revealed no significant stenosis. Echo revealed ejection fraction of 55% to 60% with moderate concentric left ventricular hypertrophy, left atrial dilatation, bdwk-zu-[id number] mitral regurgitation, mild aortic regurgitation, and pvjt-rd-[id number] tricuspid regurgitation. It is felt that his syncopal episode was probably due to a drop in his blood pressure during dialysis. He currently is incarcerated at [facility]. He apparently was undergoing dialysis and was noted his heart rate was into the 30s. He denies any dizziness or lightheadedness with this. It was felt that he should come to the hospital for further evaluation. He denies any chest discomfort. PAST MEDICAL HISTORY: 1. End-stage renal disease, on dialysis. 2. Coronary artery disease with stent placement. 3. Diabetes. 4. Hypertension. 5. Hypercholesterolemia. 6. Gout. 7. BPH. OPERATIONS: 1. Cataract surgery. 2. Coronary artery stent placed in 09/2019. MEDICATIONS: 1. Carvedilol 25 mg b.i.d. 2. Vitamin D3. 3. Plavix 75 mg daily. 4. Furosemide 40 daily. 5. Humulin R. 6. Hydralazine 100 t.i.d. 7. Isosorbide dinitrate 30 q.a.m. 8. Nifedipine 60 mg q.a.m. 9. Fish oil 2000 mg daily. 10. Pravastatin 80 nightly. 11. Prazosin 10 mg daily. ALLERGIES: AMLODIPINE, TRIMETHOPRIM, NSAIDS, SULFAMETHOXAZOLE, AND TRAMADOL. SOCIAL HISTORY: He smoked 1/3 pack per day for 30 years. He stopped in 2019. He used to drink in the past, stopped in December. 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 FAMILY HISTORY: Positive for coronary artery disease. REVIEW OF SYSTEMS: A 10-point review of systems is otherwise unremarkable. PHYSICAL EXAMINATION: VITAL SIGNS: Blood pressure 173/87, pulse 64. HEENT: PERRL. NECK: Supple. CHEST: Clear. CARDIAC: S1 and S2 are normal without any S3, S4, or murmurs. Carotid upstrokes normal without bruits. ABDOMEN: Normal bowel sounds without tenderness or organomegaly. EXTREMITIES: No clubbing, cyanosis, or edema. NEUROLOGIC: Grossly intact. SKIN: Warm and dry. LABORATORY DATA: EKG revealed sinus rhythm with rate of 64 per minute, left axis deviation, lateral ST-segment changes. It is also of note that he has short episodes of paroxysmal atrial tachycardia with a rate of 150 per minute. Hemoglobin 12.4, hematocrit 38.2, white count 6800, and platelets 96,000. Sodium 139, potassium 4.1, chloride 104, carbon dioxide 26, BUN 31, and creatinine 4.90. Troponin-I 0.041. In 01/2020, cholesterol was 141, triglycerides 70, HDL 58, and LDL 69. IMPRESSION: 1. Bradycardia, on high-dose carvedilol. 2. Episode of syncope 2 months ago, where bradycardia certainly may have played a role. 3. Uyh-FL-jsbmquckw myocardial infarction, type 2. 4. Left ventricular dysfunction in the past with ejection fraction of 40% in 2007; however, most recent echocardiogram revealed ejection fraction of 55% to 60%. 5. Coronary artery disease status post stent placement in unknown artery. 6. Hypertension. 7. Hypercholesterolemia. 8. Diabetes. 9. Former smoker. 10. Positive family history. 11. End-stage renal disease, on dialysis. 12. Paroxysmal atrial tachycardia. 13. Thrombocytopenia, not on aspirin at this time. RECOMMENDATIONS: His carvedilol dose will be cut in half, reduced to 12.5 mg b.i.d. He did have an episode of paroxysmal atrial tachycardia and I would be somewhat hesitant to drop his carvedilol further. I certainly feel that the pacemaker insertion is not warranted. We will continue to follow the patient with you, although probably just the dosage adjustment in his carvedilol is all that is needed. If his blood pressure significantly increases, consideration could be given to addition of an SINGH inhibitor. Job ID: [id number] [facility]TDD
--- NOTE | 2020-04-16 13:13 | PDOC.HOSPP ---
- Subjective Encounter Date: 04/16/20 Encounter Time: 13:12 Subjective: Mr. Reyna was seen today in follow-up of bradycardia. He does not have any complaints. - Objective Vital Signs & Weight: Vital Signs (12 hours) Temp Pulse Resp BP Pulse Ox 04/16/20 11:58 98.4 F 71 16 146/77 H 97 04/16/20 07:07 98.0 F 64 18 173/87 H 98 04/16/20 03:26 98.7 F 62 20 146/86 H 96 Weight Weight 220 lb I&O: 04/15/20 04/16/20 04/17/20 06:59 06:59 06:59 Intake Total 240 Output Total 475 Balance -235 Result Diagrams: 04/16/20 03:42 04/16/20 03:42 Additional Labs: Accuchecks 04/16/20 04/16/20 04/15/20 10:53 05:38 21:18 POC Glucose 241 H 281 H 115 H Hospitalist ROS - Medication Medications: Active Medications Generic Name Dose Route Start Last Admin Trade Name Kenq PRN Reason Stop Dose Admin Atorvastatin Calcium 20 mg 04/15/20 21:00 04/15/20 22:07 Lipitor PO 20 mg HS MARISOL Administration Clopidogrel Bisulfate 75 mg 04/16/20 09:00 04/16/20 08:47 Plavix PO 75 mg DAILY MARISOL Administration Enoxaparin Sodium 30 mg 04/16/20 09:00 04/16/20 08:50 Lovenox SC 30 mg 0900 MARISOL Administration Famotidine 20 mg 04/15/20 21:00 04/15/20 22:07 Pepcid PO 20 mg 2100 MARISOL Administration Hydralazine HCl 100 mg 04/15/20 21:00 04/16/20 08:48 Apresoline PO 100 mg TID MARISOL Administration Isosorbide Dinitrate 30 mg 04/16/20 09:00 04/16/20 08:47 Isordil PO 30 mg DAILY MARISOL Administration Terazosin HCl 10 mg 04/15/20 21:00 04/15/20 22:07 Hytrin PO 10 mg HS MARISOL Administration - Exam Eye: PERRL, anicteric sclera Heart: RRR, no gallops, no rubs, normal peripheral pulses, murmur present, II/IV Respiratory: CTAB, no wheezes, no rales, no ronchi, normal chest expansion Gastrointestinal: soft, non-tender, non-distended, normal bowel sounds, no palpable masses, no hepatomegaly, no guarding Extremities: no cyanosis, no clubbing, no edema Hosp A/P (1) Bradycardia Code(s): R00.1 - BRADYCARDIA, UNSPECIFIED Status: Acute (2) End stage renal disease on dialysis Code(s): N18.6 - END STAGE RENAL DISEASE; Z99.2 - DEPENDENCE ON RENAL DIALYSIS Status: Chronic (3) CAD (coronary artery disease) Code(s): I25.10 - ATHSCL HEART DISEASE OF [place] CORONARY ARTERY W/O ANG PCTRS Status: Chronic (4) DM2 (diabetes mellitus, type 2) Status: Chronic (5) Hypertension Code(s): I10 - ESSENTIAL (PRIMARY) HYPERTENSION Status: Chronic - Plan * Bradycardia- this is mostly asymptomatic- the dose of Carvediolol has been adjusted to 12.5 mg twice a day * Will watch him in the hospital on this dose * Cardiology input appreciated * ESRD on hemodialysis- stable * HTN- blood pressure is stable * DM- blood glucose is a bit labile- will re-start his home medications and monitor the trend
--- NOTE | 2020-04-16 14:59 | PDOC.HOSPP ---
- Subjective Encounter Date: 04/16/20 Encounter Time: 12:30 Subjective: Mr Reyna is seen for a follow up for bradycardia. He says he feels well today and had no overnight events or concerns. - Objective Vital Signs & Weight: Vital Signs (12 hours) Temp Pulse Resp BP Pulse Ox 04/16/20 11:58 98.4 F 71 16 146/77 H 97 04/16/20 07:07 98.0 F 64 18 173/87 H 98 04/16/20 03:26 98.7 F 62 20 146/86 H 96 Weight Weight 220 lb I&O: 04/15/20 04/16/20 04/17/20 06:59 06:59 06:59 Intake Total 240 Output Total 475 Balance -235 Result Diagrams: 04/16/20 03:42 04/16/20 03:42 Additional Labs: Accuchecks 04/16/20 04/16/20 04/15/20 10:53 05:38 21:18 POC Glucose 241 H 281 H 115 H Hospitalist ROS - Medication Medications: Active Medications Generic Name Dose Route Start Last Admin Trade Name Freq PRN Reason Stop Dose Admin Atorvastatin Calcium 20 mg 04/15/20 21:00 04/15/20 22:07 Lipitor PO 20 mg HS MARISOL Administration Clopidogrel Bisulfate 75 mg 04/16/20 09:00 04/16/20 08:47 Plavix PO 75 mg DAILY MARISOL Administration Famotidine 20 mg 04/15/20 21:00 04/15/20 22:07 Pepcid PO 20 mg 2100 MARISOL Administration Hydralazine HCl 100 mg 04/15/20 21:00 04/16/20 08:48 Apresoline PO 100 mg TID MARISOL Administration Isosorbide Dinitrate 30 mg 04/16/20 09:00 04/16/20 08:47 Isordil PO 30 mg DAILY MARISOL Administration Terazosin HCl 10 mg 04/15/20 21:00 04/15/20 22:07 Hytrin PO 10 mg HS MARISOL Administration - Exam General Appearance: NAD, awake alert ENT: moist mucosa Neck: supple, symmetric, no lymphadenopathy Heart: RRR, no murmur, no gallops, no rubs Heart - other findings: PVCs Respiratory: CTAB, no wheezes, no rales, no ronchi Gastrointestinal: soft, non-tender, non-distended, normal bowel sounds Psychiatric: normal affect, normal behavior Hosp A/P (1) Bradycardia Code(s): R00.1 - BRADYCARDIA, UNSPECIFIED Status: Acute (2) End stage renal disease on dialysis Code(s): N18.6 - END STAGE RENAL DISEASE; Z99.2 - DEPENDENCE ON RENAL DIALYSIS Status: Chronic (3) Hypertension Code(s): I10 - ESSENTIAL (PRIMARY) HYPERTENSION Status: Chronic (4) DM2 (diabetes mellitus, type 2) Status: Chronic - Plan Bradycardia: SR with PVCs in 70s-80s on tele monitor, carvedilol dose lowered to half of home dose, will continue to monitor on telemetry, awaiting cardiac records from [facility]- request sent DM II: blood glucose in 200s today, restarted home insulin regimen, will continue to monitor HTN: stable ESRD on dialysis: stable
[2020-04-16] MEDS: Carvedilol 6.25 MG TAB PO SCH (16:00)
[2020-04-16] MEDS: HumaLOG 300 UNITS/3 ML VIAL SC PRN (16:59)
[2020-04-16] MEDS: Famotidine 20 MG TAB PO SCH (19:28)
[2020-04-16] MEDS: Terazosin HCl 5 MG CAP PO SCH (19:28)
[2020-04-16] MEDS: Atorvastatin Calcium 20 MG TAB PO SCH (19:29)
[2020-04-16] MEDS ORDERED: NIFEdipine XL 60 MG TAB PO SCH (19:45)
[2020-04-16] MEDS ORDERED: Insulin Glargine 10 UNITS in Pre-Filled Syringe 1 EACH SC SCH (21:00)
--- NOTE | 2020-04-16 22:43 | CON ---
DATE OF CONSULTATION: 04/16/2020 SERVICE: Nephrology. REASON FOR CONSULTATION: End-stage renal disease management. REQUESTING PHYSICIAN: Dr. Marcelo Cota. CHIEF COMPLAINT: Low heart rate. HISTORY OF PRESENT ILLNESS: A 59-year-old male patient with known history of end-stage renal disease from hypertension, diabetes on hemodialysis Thursday, and Thursday, who was brought in from the snf after he was found to have low heart rate with heart rate in 30s. The patient with coronary artery disease, status post stent placement as well as paroxysmal atrial tachycardia on carvedilol, had an episode of syncope about 2 to 3 months ago. He reported that since placement of stent in September 2019, he has been having low heart rate intermittently, but this has been largely asymptomatic. He reportedly was found to have low heart rate in the snf, but this was asymptomatic. He, however, was brought to the hospital for further evaluation and treatment. He normally dialyzes Thursday, , and Thursday with last dialysis being on April 14, 2020. He denied chest pain, nausea, vomiting, abdominal pain, leg swelling, headache, dizziness, shortness of breath, cough, or fever. PAST MEDICAL HISTORY: 1. End-stage renal disease, on hemodialysis. 2. Type 2 diabetes mellitus. 3. Hypertension. 4. Hyperlipidemia. 5. Gout. 6. BPH. 7. Coronary artery disease, status post stent placement. 8. Paroxysmal atrial tachycardia. PAST SURGICAL HISTORY: 1. Cataract surgery. 2. Percutaneous cardiac stent in September 2019. 3. Tunneled dialysis catheter placement. FAMILY HISTORY: Significant for coronary artery disease, hypertension, diabetes in parents and siblings. SOCIAL HISTORY: The patient is currently incarcerated at the [facility]. He is a former smoker, smoking about a pack a day for 25 to 30 years, quit about 3 months ago. He also used to drink heavily, but quit alcohol about 7 months ago. He is and have 6 children. ALLERGIES: TRAMADOL. MEDICATIONS: Prior to hospital medications are as follows: 1. Calcium carbonate with vitamin D one tablet p.o. daily. 2. Carvedilol 25 mg p.o. b.i.d. 3. Cholecalciferol 5000 units p.o. daily. 4. Clopidogrel 75 mg p.o. daily. 5. Furosemide 40 mg p.o. daily. 6. Humulin R subcutaneously t.i.d. with meals as needed. 7. Hydralazine 100 mg p.o. t.i.d. 8. Lantus 10 units subcutaneously at bedtime. 9. Isosorbide dinitrate 30 mg p.o. daily. 10. Nifedipine 60 mg p.o. daily. 11. [place]-3 fatty acids 2000 mg p.o. daily. 12. Pravastatin 80 mg p.o. daily at bedtime. 13. 10 mg p.o. daily. REVIEW OF SYSTEMS: A 12-point review of system performed was negative other than pertinent positives and negatives included in the history of present illness. PHYSICAL EXAMINATION: VITAL SIGNS: Temperature 98.3, pulse 70, respiratory rate 18, SpO2 of 97% on room air, and blood pressure is 171/84. GENERAL: Comfortable healthy-looking male patient, in no obvious distress. Afebrile. Anicteric. Acyanotic. HEENT: Normocephalic and atraumatic. Oral mucosa is moist. NECK: Supple with no JVD. CARDIOVASCULAR: Regular rhythm and rate with normal heart sounds 1 and 2. RESPIRATORY: Fair air entry bilaterally with no obvious crackle or rhonchi or use of accessory muscles. GI: Full, soft, nontender, and nondistended with normal bowel sounds. EXTREMITIES: Grossly normal looking atraumatic with no edema or erythema. DIRECTOR OF PLAYER PERSONNEL: Conscious, alert, and oriented x3 with appropriate mental status. DIAGNOSTIC DATA: CBC today showed WBC count of 6.8, hemoglobin of 12.4, MCV of 96.3, platelets of 96. Chemistry today showed sodium 139, potassium 4.1, chloride 104, CO2 of 26, BUN 31, creatinine 4.90, glucose 291, and calcium 8.8. ASSESSMENT: 1. End-stage renal disease, on hemodialysis Thursday, , and Thursday. Electrolytes, volume status, and acid-base are acceptable. There is no acute indication for hemodialysis today. 2. Hypertension: Grossly uncontrolled since admission. Due to bradycardia, carvedilol was decreased from . 3. Asymptomatic bradycardia with heart rate down to 30. Cardiology is following. 4. Diabetes mellitus with hyperglycemia. 5. Gout without acute exacerbation. PLAN: 1. We will increase nifedipine to 120 mg daily to get adequate BP control. We will, however, give a dose of nifedipine 60 mg now as blood pressure has consistently been above 160. 2. We will continue other antihypertensives. 3. We will plan on dialyzing the patient tomorrow in line with outpatient dialysis schedule. 4. Further treatment to follow depending on hospital course. Diabetes management as per primary attending. Many thanks for involving us in the care of this patient. We will follow along with you. Job ID: [id number]
[2020-04-17] MEDS ORDERED: NIFEdipine XL 60 MG TAB PO SCH ×2 (09:00)
[2020-04-17] MEDS ORDERED: Furosemide 40 MG TAB PO SCH (09:00)
[2020-04-17] MEDS ORDERED: Fish Oil 1,000 MG CAP PO SCH (09:00)
[2020-04-17] MEDS ORDERED: Calcium Carbonate 600 MG + Vit D TAB PO SCH (09:00)
[2020-04-17] MEDS ORDERED: Lisinopril 10 MG TAB PO SCH (09:45)
--- NOTE | 2020-04-17 09:45 | PRG ---
DATE OF SERVICE: 04/17/2020 SERVICE: Nephrology. SUBJECTIVE: A 59-year-old male with end-stage renal disease, on hemodialysis, hypertension, coronary artery disease, admitted due to bradycardia. Nephrology is seeing the patient for end-stage renal disease management and hypertension. No new complaint. Reports feeling better. Denied dizziness, nausea, vomiting, leg swelling, chest pain, or headache. OBJECTIVE: VITAL SIGNS: Temperature 98.3, pulse 74, respiratory rate 16, SpO2 of 95% on room air, and blood pressure is 128/77. GENERAL: Healthy-looking male patient, in no distress. Afebrile. Anicteric. Acyanotic. HEENT: Normocephalic, atraumatic. Oral mucosa is moist. NECK: Supple with no JVD. CARDIOVASCULAR: Regular rhythm and rate with normal heart sounds 1 and 2. RESPIRATORY: Fair air entry bilaterally with no obvious crackle or rhonchi or use of accessory muscles. GASTROINTESTINAL: Full, soft, nontender, and nondistended with normal bowel sounds. EXTREMITIES: Grossly normal looking, atraumatic with no edema or erythema. CENTRAL NERVOUS SYSTEM: Conscious and alert and oriented x3 with appropriate mental status. Cranial nerves II through XII are grossly intact. DIAGNOSTIC DATA: No new labs today other than blood glucose of 68. ASSESSMENT AND PLAN: 1. End-stage renal disease, on hemodialysis Thursday, Thursday, , and Thursday. Last hemodialysis was on April 14. We will dialyze the patient today with UF as tolerated. 2. Hypertension: Control is better with increasing of amlodipine. Note that carvedilol was decreased due to bradycardia. 3. Bradycardia: Treatment as per Cardiology. 4. Disposition: The patient can be discharged after hemodialysis to continue outpatient hemodialysis. Many thanks for involving us in the care of this patient. Call for any clarification. Job ID: [id number]
[2020-04-17] MEDS: Carvedilol 6.25 MG TAB PO SCH ×2 (12:55→16:02)
[2020-04-17] MEDS: hydrALAZINE 25 MG TAB PO SCH ×2 (12:56→16:01)
[2020-04-17] MEDS: Isosorbide Dinitrate 20 MG TAB PO SCH (13:52)
[2020-04-17] MEDS: Clopidogrel Bisulfate 75 MG TAB PO SCH (16:02)
--- NOTE | 2020-04-17 16:18 | PDOC.EVN ---
Event Note - Event Note Event Note: Mr. Reyna was seen and examined and discussed with Aydee Campa NP. He does not have any complaints. He denies chest pain or dyspnea. his exam is unchanged. He has been cleared for discharge by Cardiology.
[2020-04-17 16:19] VITALS: BP 141/87; TEMP 99.6
[2020-04-17] MEDS: HumaLOG 300 UNITS/3 ML VIAL SC PRN (17:17)
--- NOTE | 2020-04-17 19:33 | DIS ---
DATE OF ADMISSION: 04/15/2020 DATE OF DISCHARGE: 04/17/2020 DISCHARGE DISPOSITION: The patient was discharged back to longterm. The patient was seen and examined on the day of discharge. Denies any new complaints. INPATIENT CONSULTS: Cardiology and Nephrology. CLINICAL COURSE: The patient is a 59-year-old male, currently in the custody of [facility]. He has a history of end-stage renal disease on hemodialysis, diabetes mellitus, and hypertension. He has been undergoing dialysis and noted that his heart rate was in the 30s. He was asymptomatic at that time , but they requested that he come to the hospital to be evaluated. During his hospital stay, Cardiology came and evaluated the patient, they decreased his Coreg to 12.5 mg p.o. b.i.d. and placed him on lisinopril 10 mg p.o. daily to help with hypertensive control. Nephrology was also consulted to follow him with his dialysis. He did receive a dialysis treatment on the day of discharge, which he tolerated well. On day of discharge, he was feeling good, although little tired from his dialysis. He was advised to be compliant with his new medications. FINAL DIAGNOSES: 1. Bradycardia. 2. End-stage renal disease, on dialysis. 3. Coronary artery disease. 4. Diabetes mellitus type 2. 5. Hypertension. DISCHARGE MEDICATIONS: New prescription; 1. Coreg 12.5 mg p.o. b.i.d. 2. Lisinopril 10 mg p.o. daily. The patient to resume; 1. Calcium carbonate vitamin D3 one tablet daily. 2. Clopidogrel 75 mg daily. 3. Furosemide 40 mg p.o. daily. 4. Hydralazine 100 mg p.o. t.i.d. 5. Lantus 10 units subcu at bedtime. 6. Isordil 30 mg p.o. daily. 7. Procardia 60 mg p.o. daily. 8. Fish oil 2000 mg p.o. daily. 9. Pravastatin 80 mg p.o. at bedtime. 10. Hytrin 10 mg p.o. daily. DISCHARGE INSTRUCTIONS: The patient was educated over his new medications and encouraged to continue to follow his blood pressures and blood sugar readings prior to taking his medications as he did have a hypoglycemic episode in the hospital. He is also to monitor his heart rate before taking his medications to hopefully ensure no further bradycardia episodes. He is to follow up outpatient with Cardiology and to continue his hemodialysis. TIME SPENT: Total time coordinating the discharge of this patient was 25 minutes. Job ID: [id number] MTDD
[2020-04-18] MEDS ORDERED: Lisinopril 10 MG TAB PO SCH (09:00)
--- NOTE | 2020-04-19 08:30 | PQF ---
[facility] Ul[facility] Specialist Crystal Reports Winform Viewer DERRICK DELGADILLO MATTHIASSANDEEP [id number] CLINICAL DOCUMENTATION CLARIFICATION FORM: POST DISCHARGE Addendum to original discharge summary date: ____ Late entry note date: __ DATE: 04/19/20 ATTN:Sandeep Campa Please exercise your independent, professional judgment in responding to the clarification form. Clinical indicators are provided on the bottom of this form for your review Can you please further clarify if Non ST-elevation myocardial infarction type 2 ruled in or ruled out? Non ST-elevation myocardial infarction type 2 [ x ] Ruled in diagnosis [ ] Continue to treat [ x ] Resolved [ ] Ruled out diagnosis [ ] Cannot rule out diagnosis [ ] Other diagnosis [ ] Unable to determine In addition, please specify: Present on Admission (POA): [ x ] Yes [ ] No [ ] Unable to determine For continuity of documentation, please document condition throughout progress notes and discharge summary. Thank You. CLINICAL INDICATORS - SIGNS / SYMPTOMS / LABS ED Provider pg.3- EKG: lateral ST depression ED Provider pg.3- Elevated troponin Consult Dr. Lebron pg.3- Non ST-elevation myocardial infarction type 2 Laboratory- Troponin I- 0.041H, 0.041H, 0.036H DS pg.1- "Bradycardia" Vital Signs 04/17: PG=523/73 Pulse=79 RISK FACTOR HTN- Consult pg.3 CAD- Consult pg.3 Hypercholesterolemia- Consult pg.3 ESRD- Consult pg.3 Afib- Consult pg.3 59years old- H and P pg.1 DM HP 04/15 HLD HP 04/15 Former Smoker HP 04/[address] Lebron 04/16 Chest X ray 04/15 Troponin Monitoring- Laboratory IV fluids- MAR EKG-ED Provider pg.3 Furosemide 40mg PO- MAR Nifedipine 60mg PO- MAR (This form is maintained as a part of the permanent medical record) 2014 [employer] All Rights Reserved [email or web address]
== END 2020-04-17 18:17 | DRG 280 ==
LOC: ERS 15:56 → 2NO 21:03 → OBSVTOIN 21:03
PROVIDERS: ADMIT Internal Medicine; ATTEND Internal Medicine
DX: R00.1 Bradycardia, unspecified (principal); N18.6 End stage renal disease; I21.A1 Myocardial infarction type 2; I12.0 Hypertensive chronic kidney disease with stage 5 chronic kidney disease or end stage renal disease; T44.7X5A Adverse effect of beta-adrenoreceptor antagonists, initial encounter; I25.10 Atherosclerotic heart disease of native coronary artery without angina pectoris; E11.22 Type 2 diabetes mellitus with diabetic chronic kidney disease; E78.5 Hyperlipidemia, unspecified; M10.9 Gout, unspecified; E78.00 Pure hypercholesterolemia, unspecified; D69.6 Thrombocytopenia, unspecified; I48.0 Paroxysmal atrial fibrillation; N40.0 Benign prostatic hyperplasia without lower urinary tract symptoms; Z99.2 Dependence on renal dialysis; Z95.5 Presence of coronary angioplasty implant and graft; Z88.5 Allergy status to narcotic agent; Z79.4 Long term (current) use of insulin; Z79.899 Other long term (current) drug therapy; Z79.01 Long term (current) use of anticoagulants; Z87.891 Personal history of nicotine dependence
CPT/HCPCS: 36415; 36416; 71045; 80048; 80053; 82553; 84484; 85025; 90935; 93005; 93010; G0257; J1650; J1815

== ENCOUNTER 2020-04-25 07:56 | Day surgery (SDC) | payer OTHER ==
[2020-04-24 16:37] VITALS: BMI 26.1
[2020-04-25] MEDS ORDERED: Fentanyl 100 MCG/2 ML VIAL ONE ×2 (08:43→09:08)
[2020-04-25] MEDS ORDERED: Propofol 500 MG/50 ML VIAL ONE (09:08)
[2020-04-25] MEDS ORDERED: Midazolam HCl 2 mg/2 ml Vial ONE (09:08)
[2020-04-25] MEDS ORDERED: Ketamine 50 MG/ML (10ML VIAL) ONE (09:08)
[2020-04-25] MEDS ORDERED: Protamine Sulfate 50 MG/5 ML VIAL ONE (09:09)
[2020-04-25] MEDS ORDERED: Lidocaine 1% w/Epinephrine 1:100K 20 ML VIAL ONE (09:09)
[2020-04-25] MEDS ORDERED: Bupivacaine PF 0.5% 30 ML VIAL ONE (09:09)
[2020-04-25] MEDS ORDERED: Heparin 5,000 UNITS/ML VIAL ONE (09:09)
[2020-04-25] MEDS ORDERED: Phenylephrine 10 MG/ML VIAL ONE (09:21)
[2020-04-25] MEDS ORDERED: Bupivacaine HCl 0.5%/Epinephrine 1:200,000/PF 30 ml Vial ONE (12:16)
[2020-04-25] MEDS ORDERED: Lidocaine 1% PF 5 ML VIAL ONE (12:16)
[2020-04-25] MEDS ORDERED: Heparin 10,000 UNITS/ 10 ML VIAL ONE (12:16)
--- NOTE | 2020-04-25 15:18 | OP ---
DATE OF PROCEDURE: 04/25/2020 PREOPERATIVE DIAGNOSES: End-stage renal disease, dialyzing via right internal jugular cuffed tunneled dialysis catheter placed at [facility]. POSTOPERATIVE DIAGNOSES: End-stage renal disease, dialyzing via right internal jugular cuffed tunneled dialysis catheter placed at [facility]. PROCEDURES PERFORMED: Left arm primary arteriovenous fistula, perforating branch of antecubital vein to the proximal radial artery, which was of excellent caliber, outflow primarily the cephalic vein calibrated to 4 mm coronary dilator. Retrograde antecubital vein preserved, communication with basilic vein noted, but more distal than from the perforating branch. ANESTHESIA: Regional, TIVA. DESCRIPTION OF PROCEDURE: The patient was taken to the operating room, where under regional anesthesia, the left upper extremity was prepared with ChloraPrep and draped in routine fashion. Regional block was used skin incision made below the antecubital fossa, carried down through skin and subcutaneous tissues in the proximal forearm, identifying the antecubital vein and proximal radial artery. Proximal radial artery is very large. The patient was given 6000 units of heparin intravenously. The perforating branch of antecubital vein dissected free, dividing branches between 4-0 silk ties and clips, and spatulating over branch point, interrogated with coronary dilators, passing coronary dilators from 2 mm to 4 mm coronary dilator at the cephalic vein outflow without any obstruction at all, the cephalic vein outflow in the upper arm was very large. Perforating branch of antecubital vein anastomosed to the proximal radial artery with continuous suture of 6-0 Prolene after making an arteriotomy, elongating with Lee scissors. Good hemostasis noted at the end of the procedure. Good Doppler signal noted in the cephalic vein outflow. As mentioned above, the primary outflow is the cephalic vein for anatomic reasons. The perforating branch fed directly to the cephalic vein, but retrograde would communicate with the basilic vein, which was smaller. Retrograde antecubital vein preserved. Hemostasis noted. Anesthesia administered 25 mg of protamine intravenously. Subcutaneous tissue was approximated with 3-0 Monocryl, skin with subdermal 4-0 Monocryl, and derma glue applied. The procedure tolerated the procedure well. Job ID: [id number]
--- NOTE | 2020-04-27 06:38 | HP ---
HISTORY OF PRESENT ILLNESS: Elliott Reyna is a 59-year-old black male, incarcerated. He has end-stage renal disease, on maintenance dialysis Thursday, , Thursday at [facility], followed by Dr. Triana in [place]. Patient in September 2013 had a hemodialysis catheter placed for dialysis. He reports to my office today with the ultrasound vein mapping from [facility]. Plan is for left arm AV fistula. I have asked him to avoid IV access above his wrist in the right arm and in the left arm entirely. He understands the risks and benefits of the procedure and consents. Patient had chronic kidney disease, underwent cardiac stent placed in September [address] Jiang. He did not have myocardial infarction. He denies any symptoms of coronary artery disease at this time. He has a history of tobacco abuse. He has been incarcerated since January. Prior to incarceration, the patient smoked less than a pack a day of cigarettes, although he quit smoking in January 2020 and quit drinking alcohol in September 2019. MEDICATIONS: 1. [place]-3. 2. Terazosin. 3. Glipizide. 4. Simvastatin. 5. Aspirin. 6. Carvedilol. 7. Furosemide. 8. Hydralazine. 9. Lisinopril. 10. Allopurinol. 11. Lantus insulin. 12. Calcium. PAST MEDICAL HISTORY: Type 2 diabetes mellitus; dyslipidemia; gout; coronary artery disease, stable, asymptomatic; hypertension; BPH; and history of pancreatitis. PAST SURGICAL HISTORY: Cardiac cath and stenting in the past, followed by Dr. Jiang, who is his parts washer. REVIEW OF SYSTEMS: Noncontributory. FAMILY HISTORY: Noncontributory. SOCIAL HISTORY: Tobacco use, currently none. PHYSICAL EXAMINATION: VITAL SIGNS: 219 pounds, 77 inches, and BMI 26. 160/68, 53, and 97 degrees. HEAD, EARS, EYES, NOSE, AND THROAT: Unremarkable. NEUROLOGIC: Intact. LUNGS: Clear to auscultation. No wheezing. CARDIAC: Regular rate and rhythm. ABDOMEN: Soft, nontender. VASCULAR: Palpable radial pulses bilaterally. EXTREMITIES: No edema. NEUROLOGIC: Intact. No focal deficit. ASSESSMENT AND PLAN: End-stage renal disease. PLAN: Placement of a left arm fistula under regional or general anesthesia per Anesthesia choice. Plan to do this as an outpatient. He will follow up my office in 3 to 4 weeks postoperatively. He understands risks and benefits, consents. Job ID: [id number]
== END 2020-04-25 13:00 ==
LOC: SDC 07:56
PROVIDERS: ATTEND Specialist
PROC: 031C3ZF Bypass Left Radial Artery to Lower Arm Vein, Percutaneous Approach (ICD-10-PCS; principal; 2020-04-25)
DX: I12.0 Hypertensive chronic kidney disease with stage 5 chronic kidney disease or end stage renal disease (principal); E11.22 Type 2 diabetes mellitus with diabetic chronic kidney disease; N18.6 End stage renal disease; E78.5 Hyperlipidemia, unspecified; N40.0 Benign prostatic hyperplasia without lower urinary tract symptoms; I25.10 Atherosclerotic heart disease of native coronary artery without angina pectoris; F17.200 Nicotine dependence, unspecified, uncomplicated; Z79.4 Long term (current) use of insulin; Z79.82 Long term (current) use of aspirin; Z79.899 Other long term (current) drug therapy; Z95.5 Presence of coronary angioplasty implant and graft; Z88.2 Allergy status to sulfonamides; Z88.5 Allergy status to narcotic agent; Z88.6 Allergy status to analgesic agent; Z88.8 Allergy status to other drugs, medicaments and biological substances
CPT/HCPCS: 36416; 93005; 93010; J0670; J0690; J1644; J2001; J2250; J2370; J2704; J2720; J3010; S0020

== ENCOUNTER 2020-05-14 07:30 | Outpatient (CLI) | payer OTHER ==
--- NOTE | 2020-05-14 08:34 | ULT ---
EXAM: US Gallbladder RUQ CLINICAL HISTORY: Right upper quadrant pain. COMPARISON: None. FINDINGS: Pancreas: Head and proximal pancreatic body have a normal echotexture. Dilated pancreatic duct measu ring 0.5 cm Liver:Hepatic parenchyma has a normal echotexture. No hepatic masses or intrahepatic biliary dilatati on. Right hepatic lobe: 17 cm Gallbladder: No sonographic evidence of cholelithiasis, gallbladder wall thickening or pericholecysti c fluid. Medina's sign:Negative Portal Vein: Patent. Appropriate directional flow Bile ducts: 0.72 common bile duct diameter Right kidney: No hydronephrosis. Right kidney measures 3.6 x 9.7 x 4.6 cm in length. IMPRESSION: 1. No sonographic evidence of cholelithiasis or cholecystitis 2. Dilatation of the pancreatic duct and common bile duct. Consider MRCP or ERCP. CODE T
== END 2020-05-14 07:31 | disposition home or self-care (01) ==
LOC: ULT 07:30
PROVIDERS: ATTEND Family Medicine
DX: R10.11 Right upper quadrant pain (principal); K86.89 Other specified diseases of pancreas; K83.8 Other specified diseases of biliary tract
CPT/HCPCS: 76705

== ENCOUNTER 2020-06-28 06:19 | Emergency (ER) | payer OTHER ==
[2020-06-28 07:21] LABS: #Lymphocytes 0.7 thou/uL (1.20-3.40); #Monocytes 0.6 thou/uL (0.11-0.59); #Neutrophils 3.9 thou/uL (1.40-6.50); %Basophils 0.6 % (0.0-1.0); %Eosinophils 0.1 % (0.0-10.0); %Lymphocytes 13.9 % (21.0-51.0); %Monocytes 11.1 % (0.0-10.0); %Neutrophils 74.3 % (42.0-75.0); Hemoglobin 9.6 g/dL (14.0-18.0); Mean Corpuscular HGB CONC 32.3 g/dL (32.0-36.0); Mean Corpuscular Hemoglobin 31.3 pg (27.0-31.0); Mean Corpuscular Volume 96.8 fL (78.0-98.0); Mean Platelet Volume 9.2 fL (7.4-10.4); Platelet Count 80 thou/uL (130-400); RBC Distribution Width 12.8 % (11.5-14.5); Red Blood Cell (RBC) Count 3.06 mill/uL (4.70-6.10); White Blood Cell (WBC) Count 5.2 thou/uL (4.8-10.8)
--- NOTE | 2020-06-28 07:38 | RAD ---
EXAM: Single view of the chest HISTORY: Fever COMPARISON: 04/20/2020 FINDINGS: Single view of the chest shows an enlarged but stable cardiomediastinal silhouette. The di alysis catheter is unchanged in position. There may be airspace opacity in the right lower lobe. The bones are unremarkable IMPRESSION: Right lower lobe infiltrate
[2020-06-28 07:42] LABS: ALT (SGPT) 10 U/L (8-55); AST (SGOT) 17 U/L (5-34); Albumin 3.6 g/dL (3.5-5.0); Alkaline Phosphatase 56 U/L (40-110); Anion Gap 11 mmol/L (10-20); BUN (Urea Nitrogen) 36 mg/dL (8.4-25.7); Bilirubin, Total 0.5 mg/dL (0.2-1.2); Calc. Creatinine Clearance 0 mL/min (70-130); Calcium 8.5 mg/dL (7.8-10.44); Carbon Dioxide 27 mmol/L (22-29); Chloride 105 mmol/L (98-107); Estimated GFR-MDRD 14; Globulin 3.3 g/dL (2.4-3.5); Glucose 224 mg/dL (70-105); Potassium 4.4 mmol/L (3.5-5.1); Protein, Total 6.9 g/dL (6.0-8.3); Sodium 139 mmol/L (136-145)
[2020-06-28] MEDS ORDERED: cefTRIAXone\\ROCEPHIN 2 GM VIAL ONE (08:03)
[2020-06-28] MEDS ORDERED: Azithromycin 500 MG VIAL ONE (08:39)
[2020-06-28 18:11] LABS: SARS-CoV-2 MS2 Positive; SARS-CoV-2 N Gene Positive; SARS-CoV-2 S Gene Positive; SARS-CoV-2 by NAA DETECTED (NotDetected); SARS-CoV-2 orf1ab Positive
== END 2020-06-28 10:10 ==
LOC: ERS 06:19
DX: U07.1 COVID-19 (principal); J12.89 Other viral pneumonia; I12.0 Hypertensive chronic kidney disease with stage 5 chronic kidney disease or end stage renal disease; E11.22 Type 2 diabetes mellitus with diabetic chronic kidney disease; N18.6 End stage renal disease; E78.5 Hyperlipidemia, unspecified; M10.9 Gout, unspecified; Z99.2 Dependence on renal dialysis; Z87.891 Personal history of nicotine dependence
CPT/HCPCS: 36600; 71045; 80053; 83605; 85025; 87040; 87635; 93005; 96365; 96367; J0456; J0696; U0003